=== PATIENT | female | born 1995 | race Caucasian/White ===

== ENCOUNTER 2016-12-27 23:01 | Emergency (ER) | payer BC ==
[~2016-12-27] VITALS: Ht 167.6 cm; Wt 63.2 kg
[~2016-12-27 23:01] MED LIST: ACET-62 PO; IBUP200C62 PO; LEVO500T63 PO; MEDR150D9 IM; NITR100C4 PO; ONDA4TAB7 PO; PHEN-779 PO; PROC-14 PO; [UNRECOGNIZED DRUG - OTHER] PO; [UNRECOGNIZED DRUG - OTHER] PO; [UNRECOGNIZED DRUG - OTHER] PO
--- OUTSIDE RECORDS SUMMARY | 2016-12-27 23:16 | XMS REPORT | Continuity of Care Document ---
Author Author [facility] Organization [facility] Address Unknown Phone Unavailable Allergies Active Description Code Type Severity Reaction Onset Reported/Identified Relationship to Patient Clinical Status Yes hydrocodone hydrocodone Drug Allergy Unknown HIVES 12/21/2015 Yes latex latex Drug Allergy Unknown THROAT SWOLLEN, ITCHY 12/21/2015 Yes meloxicam meloxicam Drug Allergy Unknown THROAT SWELLING 12/21/2015 Yes nalbuphine nalbuphine Drug Allergy Unknown HOT FLASHES/ COLD SWEATS 12/21/2015 Yes Penicillins Penicillins Drug Allergy Unknown VOMITING/ HIVES 12/21/2015 Yes sulfamethoxazole sulfamethoxazole Drug Allergy Unknown VOMITING 12/21/2015 Yes tramadol tramadol Drug Allergy Unknown VOMITING/DIZZINESS 12/21/2015 Yes trimethoprim trimethoprim Drug Allergy Unknown VOMITING 12/21/2015 Yes Bactrim Drug Allergy Unknown N/A 12/28/2015 Yes hydrocodone Drug Allergy Unknown N/A 12/28/2015 Yes latex Drug Allergy Unknown N/A 12/28/2015 Yes NUBAIN Drug Allergy Unknown N/A 12/28/2015 Yes penicillin Drug Allergy Unknown N/A 12/28/2015 Yes traMADol Drug Allergy Unknown N/A 12/28/2015 Yes oxyCODONE-acetaminophen Drug Allergy Mild hives 02/20/2016 Yes acetaminophen acetaminophen Drug Allergy Mild HIVES 07/23/2016 Yes latex latex Drug Allergy Severe SWELLING/ANAPHYLAXIS 10/17/2016 Yes meloxicam meloxicam Drug Allergy Severe THROAT CLOSES 10/17/2016 Yes tramadol tramadol Drug Allergy Moderate VOMITING 10/17/2016 Yes amoxicillin amoxicillin Drug Allergy Mild HIVES 10/17/2016 Yes hydrocodone hydrocodone Drug Allergy Mild HIVES 10/17/2016 Yes nalbuphine nalbuphine Drug Allergy Mild HOT FLASHES 10/17/2016 Yes Penicillins Penicillins Drug Allergy Mild HIVES 10/17/2016 Yes sulfamethoxazole sulfamethoxazole Drug Allergy Mild HIVES/ NAUSEA 10/17/2016 Yes trimethoprim trimethoprim Drug Allergy Mild HIVES/NAUSEA 10/17/2016 Yes ketorolac ketorolac Drug Allergy Unknown DIZZYNESS,DRY HEAVING 10/17/2016 Yes CATAFLAM Drug Allergy Unknown hives 11/21/2016 Yes gabapentin Drug Allergy Unknown hives 11/21/2016 Yes meloxicam Drug Allergy Unknown anaphylaxsis 11/21/2016 Yes fentanyl fentanyl Drug Allergy Severe THROAT CLOSE 12/07/2016 Yes latex latex Drug Allergy Severe SWELLING/ANAPHYLAXIS 12/07/2016 Yes meloxicam meloxicam Drug Allergy Severe THROAT CLOSES 12/07/2016 Yes diclofenac diclofenac Drug Allergy Moderate HIVES 12/07/2016 Yes tramadol tramadol Drug Allergy Moderate VOMITING 12/07/2016 Yes amoxicillin amoxicillin Drug Allergy Mild HIVES 12/07/2016 Yes hydrocodone hydrocodone Drug Allergy Mild HIVES 12/07/2016 Yes nalbuphine nalbuphine Drug Allergy Mild HOT FLASHES 12/07/2016 Yes Penicillins Penicillins Drug Allergy Mild HIVES 12/07/2016 Yes sulfamethoxazole sulfamethoxazole Drug Allergy Mild HIVES/ NAUSEA 12/07/2016 Yes trimethoprim trimethoprim Drug Allergy Mild HIVES/NAUSEA 12/07/2016 Yes ketorolac ketorolac Drug Allergy Unknown DIZZYNESS,DRY HEAVING 12/07/2016 Medications Medication Packaging Start Date Stop Date Route Dosage Sig oxyCODONE-acetaminophen 7.5 mg-325 mg tablet Tablet 12/28/2015 01/25/2016 7.5-325 mg 1 (one) Tablet by Oral route every 8 hours for 28 days as needed Depo-Provera 150 mg/mL intramuscular syringe Milligram 12/28/2015 150 mg/mL take 150 Milligram(s) by Intramuscular route every 3 months. Given IM LUOQ GM on 11/21/15 Depo-Provera 150 mg/mL intramuscular syringe Milligram 12/28/2015 150 mg/mL take 150 Milligram(s) by Intramuscular route every 3 months. Given IM LUOQ GM Zofran ODT 8 mg disintegrating tablet Tablet 02/01/20162015 8 mg take 1 (one) by Oral route every 8 hours as needed Tylenol-Codeine #3 300 mg-30 mg tablet Tablet 02/20/20162015 300-30 mg take 1 (one) Tablet by Oral route every 8 hours as needed Percocet 5 mg-325 mg tablet Tablet 03/08/2016 05/24/2016 5-325 mg take 1 (one) Tablet by Oral route every 8 hours for 14 days as needed tiZANidine 4 mg tablet Tablet 05/24/2016 11/21/2016 4 mg take 1 (one) Tablet by Oral route at bedtime gabapentin 300 mg capsule Capsule 05/24/2016 10/07/2016 300 mg take 1 (one) Capsule by Oral route three times per day benzonatate 200 mg capsule Capsule 06/03/2016 10/07/2016 200 mg take 1 (one) Capsule by Oral route three times per day as needed fluticasone 50 mcg/actuation nasal spray,suspension Inhaler 06/03/2016 10/07/2016 50 mcg/actuation 2 (two) Puff(s) each nostril daily doxycycline hyclate 100 mg tablet Tablet 06/25/2016 10/07/2016 100 mg take 1 (one) Tablet by Oral route two times per day for 10 days promethazine 6.25 mg-codeine 10 mg/5 mL syrup Milliliter 06/25/2016 10/07/2016 6.25-10 mg/5 mL 5 (five) Milliliter(s) by Oral route every 8 hours as needed Flomax 0.4 mg capsule Capsule 07/24/2016 10/07/2016 0.4 mg take 1 (one) Capsule by Oral route daily for 14 days Zofran ODT 4 mg disintegrating tablet Tablet 07/24/20162015 4 mg take 1 (one) Tablet by Oral route every 8 hours as needed Ventolin HFA 90 mcg/actuation aerosol inhaler Inhaler 08/30/2016 10/07/2016 90 mcg/actuation 1 or 2 (one or two) Puff(s) by inhaled route every 4 to 6 hours as needed Bromfed DM 2 mg-30 mg-10 mg/5 mL syrup Milliliter 11/13/2016 2-30-10 mg/5 mL 10 Milliliter(s) by Oral route every 6 hours as needed doxycycline monohydrate 25 mg/5 mL oral suspension Milliliter 11/21/2016 12/10/2016 25 mg/5 mL 20 Milliliter(s) by Oral route two times per day for 7 days Robaxin 500 mg tablet Ampule 11/21/2016 11/21/2016 500 mg take 1 (one) Tablet by Oral route daily predniSONE 50 mg tablet Tablet 11/21/2016 12/10/2016 50 mg take 1 (one) Tablet by Oral route every morning for 5 days Zithromax Z-Jose 250 mg tablet Package 11/27/2016 12/10/2016 250 mg take as directed predniSONE 20 mg tablet Tablet 12/10/2016 20 mg take 3 (three ) by Oral route in AM x 6 days, then 2 po q AM x 2 days, then 1 po Q AM x 2 days Problems Date Dx Coded Attending Type Code Diagnosis Diagnosed By 12/29/2015 DIOGO KOENIG MD M25.551 Pain in right hip DIOGO KOENIG MD 05/27/2016 DIOGO KOENIG MD Z00.00 Encounter for general adult medical examination without abnormal findings DIOGO KOENIG MD 05/27/2016 DIOGO KOENIG MD Z30.49 Encounter for surveillance of other contraceptives DIOGO KOENIG MD 06/04/2016 DIOGO KOENIG MD J06.9 Acute upper respiratory infection, unspecified АЛЕКСАНДР SUERO MD 08/16/2016 DIOGO KOENIG MD Z30.49 Encounter for surveillance of other contraceptives DIOGO KOENIG MD 10/08/2016 DIOGO KOENIG MD r31.29 Other microscopic hematuria DIOGO KOENIG MD 10/08/2016 DIOGO KOENIG MD R33.8 Other retention of urine DIOGO KOENIG MD 11/22/2016 DIOGO KOENIG MD J01.80 Other acute sinusitis JOHN FELICIANO MD 11/22/2016 DIOGO KOENIG MD Z30.49 Encounter for surveillance of other contraceptives JOHN FELICIANO MD 12/11/2016 DIOGO KOENIG MD M67.833 Other specified disorders of tendon, right wrist JADA VALENCIA, RYAN Suarez Code Description [place] [address] Office or other outpatient visit for the evaluation and management of a new patient, which requires DIOGO KOENIG MD 03/29/2016 00128 Urine test, by visual color comparison methods DIOGO KOENIG MD 05/27/2016 89238 Periodic comprehensive preventive medicine reevaluation and management of an individual including an DIOGO KOENIG MD 05/27/2016 j1050 medroxyprogesterone acetate 1mg DIOGO KOENIG MD 05/27/2016 91791 Office or other outpatient visit for the evaluation and management of an established patient, which АЛЕКСАНДР SUERO MD 06/04/2016 12887 Urine test, by visual color comparison methods DIOGO KOENIG MD 06/14/2016 56660 Office or other outpatient visit for the evaluation and management of an established patient, which АЛЕКСАНДР SUERO MD 06/14/2016 12186 Periodic comprehensive preventive medicine reevaluation and management of an individual including an DIOGO KOENIG MD 06/14/2016 j1050 medroxyprogesterone acetate 1mg DIOGO KOENIG MD 06/14/2016 82227 Administration of Injection DIOGO KOENIG MD W 09/13/2016 j1050 medroxyprogesterone acetate 1mg DIOGO KOENIG MD 09/13/2016 73329 Office or other outpatient visit for the evaluation and management of an established patient, which DIOGO KOENIG MD 10/08/2016 90563 Office or other outpatient visit for the evaluation and management of an established patient, which DIOGO KOENIG MD 10/18/2016 29001 Urine test, by visual color comparison methods JOHN FELICIANO MD 11/22/2016 52413 Office or other outpatient visit for the evaluation and management of an established patient, which JOHN FELICIANO MD 11/22/2016 J1050 medroxyprogesterone acetate 1mg JOHN FELICIANO MD 11/22/2016 83913 Radiologic examination, wrist; complete, minimum of 3 views RYAN ELIAS MD 12/11/2016 10592 Office or other outpatient visit for the evaluation and management of an established patient, which RYAN ELIAS MD 12/11/2016 A4570 Splint RYAN ELIAS MD 12/11/2016 13792 Office or other outpatient visit for the evaluation and management of an established patient, which JOHN FELICIANO MD 12/20/2016 J1050 medroxyprogesterone acetate 1mg JOHN FELICIANO MD 12/20/2016 Results Test Result Range URINE CULTURE - 01/01/15 20:20 Microbiology UR TEST - 02/19/15 14:40 UR TEST NEGATIVE NEGATIVE CBC W/DIFF - 11/01/15 17:16 EOSINOPHIL # 0.1 k/cumm 0.1-0.5 EOSINOPHIL % 2 % 2-4 GRANULOCYTE # 3.3 k/cumm 2.0-9.0 GRANULOCYTE % 48 % 50-75 LYMPHOCYTE # 2.8 k/cumm 1.0-4.0 LYMPHOCYTE % 41 % 20-30 MEAN CELL HGB 29.3 pg 27.0-33.0 MEAN CELL HGB CONCENTRATION 34.2 g/dL 32.0-37.0 MEAN CELL VOLUME 85.6 fl 80.0-100.0 MONOCYTE # 0.7 k/cumm 0.1-1.0 MONOCYTE % 10 % 4-6 RED BLOOD CELL 4.10 m/cumm 4.00-6.00 RED CELL DISTRIBUTION WIDTH 12.8 % 11.0- 15.6 WHITE BLOOD CELL 7.0 k/cumm 5.0-10.0 HEMOGLOBIN 12.0 gm/dL 12.0-16.0 HEMATOCRIT 35.1 % 37.0-47.0 PLATELET COUNT 280 k/cumm 150-400 CBC W/DIFF - 11/07/15 15:21 EOSINOPHIL # 0.0 k/cumm 0.1-0.5 EOSINOPHIL % 1 % 2-4 GRANULOCYTE # 4.6 k/cumm 2.0-9.0 GRANULOCYTE % 61 % 50-75 LYMPHOCYTE # 2.3 k/cumm 1.0-4.0 LYMPHOCYTE % 30 % 20-30 MEAN CELL HGB 29.3 pg 27.0-33.0 MEAN CELL HGB CONCENTRATION 34.0 g/dL 32.0-37.0 MEAN CELL VOLUME 86.2 fl 80.0-100.0 MONOCYTE # 0.6 k/cumm 0.1-1.0 MONOCYTE % 8 % 4-6 RED BLOOD CELL 3.92 m/cumm 4.00-6.00 RED CELL DISTRIBUTION WIDTH 13.0 % 11.0- 15.6 WHITE BLOOD CELL 7.5 k/cumm 5.0-10.0 HEMOGLOBIN 11.5 gm/dL 12.0-16.0 HEMATOCRIT 33.8 % 37.0-47.0 PLATELET COUNT 308 k/cumm 150-400 C REACTIVE PROTEIN - 11/07/15 15:21 C REACTIVE PROTEIN < 2.9 mg/L < 8.0 SED RATE - 11/07/15 15:21 SED RATE 10 mm/hr 0-15 CHEM/HEM PROFILE-BEDSIDE - 11/07/15 15:24 POTASSIUM 3.9 mmol/L 3.5-5.3 METHOD Bedside ANION GAP 19 mmol/L 10-20 METHOD Bedside GLUCOSE 98 mg/dL 70-99 BLOOD UREA NITROGEN 9 mg/dL 7-20 CREATININE 0.8 mg/dL 0.6-1.0 HEMOGLOBIN 12.2 gm/dL 12.0-16.0 HEMATOCRIT 36.0 % 37.0-47.0 SODIUM 140 mmol/L 135-148 CHLORIDE 103 mmol/L 98-110 CARBON DIOXIDE 22 mmol/L 21-32 CALCIUM IONIZED 4.9 mg/dL 4.5-5.3 URINALYSIS, ROUTINE - 12/21/15 20:30 UA LEUKOCYTE ESTERASE DIPSTICK 1+ NEGATIVE UA NITRITE DIPSTICK NEGATIVE NEGATIVE UA PROTEIN DIPSTICK TRACE NEGATIVE UA GLUCOSE DIPSTICK NEGATIVE NEGATIVE UA KETONE DIPSTICK NEGATIVE NEGATIVE UA UROBILINOGEN DIPSTICK NORMAL NORMAL UA BILIRUBIN DIPSTICK NEGATIVE NEGATIVE UA BLOOD DIPSTICK TRACE NEGATIVE UA SPECIFIC GRAVITY 1.020 1.015-1.025 UR PH 6.5 5.0-7.0 UA MICROSCOPIC - 12/21/15 20:30 UA AMORPHOUS SEDIMENT 1+ UA BACTERIA 1+ NEGATIVE UA EPITHELIAL CELLS 2+ epi/hpf 0 - 1+ UA MUCUS 4+ NEG TO 1+ UA RBC 0-3 rbc/hpf 0 - 3 UA VOLUME FOR EXAM 12.0 mL (12mL STD) UA WBC 2-5 wbc/hpf 0 - 5 UR TEST - 12/21/15 20:30 UR TEST NEGATIVE NEGATIVE UR TEST - 03/04/16 17:15 UR TEST NEGATIVE NEGATIVE Preg UCG Urine - 05/24/16 14:33 Please note: ok NRG Urine hCG Negative NRG URINALYSIS, ROUTINE - 07/20/16 16:47 UA LEUKOCYTE ESTERASE DIPSTICK 2+ NEGATIVE UA NITRITE DIPSTICK POSITIVE NEGATIVE UA PROTEIN DIPSTICK NEGATIVE NEGATIVE UA GLUCOSE DIPSTICK NEGATIVE NEGATIVE UA KETONE DIPSTICK NEGATIVE NEGATIVE UA UROBILINOGEN DIPSTICK NORMAL NORMAL UA BILIRUBIN DIPSTICK NEGATIVE NEGATIVE UA BLOOD DIPSTICK 2+ NEGATIVE UA SPECIFIC GRAVITY 1.020 1.015-1.025 UR PH 6.5 5.0-7.0 UA MICROSCOPIC - 07/20/16 16:47 UA BACTERIA 5+ NEGATIVE UA EPITHELIAL CELLS 3+ epi/hpf 0 - 1+ UA MUCUS 2+ NEG TO 1+ UA RBC 3-5 rbc/hpf 0 - 3 UA VOLUME FOR EXAM 12.0 mL (12mL STD) UA WBC 20-50 wbc/hpf 0 - 5 UR TEST - 07/20/16 16:47 UR TEST NEGATIVE NEGATIVE URINE CULTURE - 07/20/16 16:47 Microbiology CHEM/HEM PROFILE-BEDSIDE - 07/20/16 16:59 POTASSIUM 3.6 mmol/L 3.5-5.3 METHOD Bedside ANION GAP 18 mmol/L 10-20 METHOD Bedside GLUCOSE 83 mg/dL 70-99 BLOOD UREA NITROGEN 9 mg/dL 7-20 CREATININE 0.8 mg/dL 0.6-1.0 HEMOGLOBIN 11.9 gm/dL 12.0-16.0 HEMATOCRIT 35.0 % 37.0-47.0 SODIUM 141 mmol/L 135-148 CHLORIDE 106 mmol/L 98-110 CARBON DIOXIDE 22 mmol/L 21-32 CALCIUM IONIZED 4.4 mg/dL 4.5-5.3 CHEM/HEM PROFILE-BEDSIDE - 07/23/16 19:08 POTASSIUM 3.8 mmol/L 3.5-5.3 METHOD Bedside ANION GAP 17 mmol/L 10-20 METHOD Bedside GLUCOSE 84 mg/dL 70-99 BLOOD UREA NITROGEN 11 mg/dL 7-20 CREATININE 0.8 mg/dL 0.6-1.0 HEMOGLOBIN 12.9 gm/dL 12.0-16.0 HEMATOCRIT 38.0 % 37.0-47.0 SODIUM 140 mmol/L 135-148 CHLORIDE 106 mmol/L 98-110 CARBON DIOXIDE 22 mmol/L 21-32 CALCIUM IONIZED 4.5 mg/dL 4.5-5.3 URINALYSIS, ROUTINE - 07/23/16 19:09 UA LEUKOCYTE ESTERASE DIPSTICK TRACE NEGATIVE UA NITRITE DIPSTICK NEGATIVE NEGATIVE UA PROTEIN DIPSTICK NEGATIVE NEGATIVE UA GLUCOSE DIPSTICK NEGATIVE NEGATIVE UA KETONE DIPSTICK NEGATIVE NEGATIVE UA UROBILINOGEN DIPSTICK NORMAL NORMAL UA BILIRUBIN DIPSTICK NEGATIVE NEGATIVE UA BLOOD DIPSTICK TRACE NEGATIVE UA SPECIFIC GRAVITY 1.015 1.015-1.025 UR PH 7.0 5.0-7.0 UA MICROSCOPIC - 07/23/16 19:09 UA BACTERIA 1+ NEGATIVE UA EPITHELIAL CELLS 3+ epi/hpf 0 - 1+ UA RBC 0-3 rbc/hpf 0 - 3 UA VOLUME FOR EXAM 12.0 mL (12mL STD) UA WBC 0-1 wbc/hpf 0 - 5 UR TEST - 07/23/16 19:11 UR TEST NEGATIVE NEGATIVE CBC W/DIFF - 07/23/16 19:25 BASOPHIL # 0.0 k/cumm 0.0-0.2 BASOPHIL % 1 % 0-1 EOSINOPHIL # 0.2 k/cumm 0.1-0.5 EOSINOPHIL % 2 % 2-4 GRANULOCYTE # 2.4 k/cumm 2.0-9.0 GRANULOCYTE % 38 % 50-75 LYMPHOCYTE # 3.1 k/cumm 1.0-4.0 LYMPHOCYTE % 50 % 20-30 MEAN CELL HGB 30.1 pg 27.0-33.0 MEAN CELL HGB CONCENTRATION 34.6 g/dL 32.0-37.0 MEAN CELL VOLUME 87.1 fl 80.0-100.0 MONOCYTE # 0.6 k/cumm 0.1-1.0 MONOCYTE % 9 % 4-6 RED BLOOD CELL 4.28 m/cumm 4.00-6.00 RED CELL DISTRIBUTION WIDTH 12.5 % 11.0- 15.6 WHITE BLOOD CELL 6.3 k/cumm 5.0-10.0 HEMOGLOBIN 12.9 gm/dL 12.0-16.0 HEMATOCRIT 37.3 % 37.0-47.0 PLATELET COUNT 280 k/cumm 150-400 METABOLIC PANEL, BASIC - 07/23/16 19:25 POTASSIUM 3.8 mmol/L 3.5-5.3 EST GFR (MDRD) > 60 mL/min > 59 ANION GAP 11 mmol/L 5-15 GLUCOSE 82 mg/dL 70-99 CALCIUM 8.9 mg/dL 8.5-10.1 BLOOD UREA NITROGEN 11 mg/dL 7-20 CREATININE 0.9 mg/dL 0.6-1.0 SODIUM 139 mmol/L 135-148 CHLORIDE 103 mmol/L 98-110 CARBON DIOXIDE 25 mmol/L 21-32 URINALYSIS, ROUTINE - 08/06/16 13:10 UA LEUKOCYTE ESTERASE DIPSTICK TRACE NEGATIVE UA NITRITE DIPSTICK NEGATIVE NEGATIVE UA PROTEIN DIPSTICK TRACE NEGATIVE UA GLUCOSE DIPSTICK NEGATIVE NEGATIVE UA KETONE DIPSTICK NEGATIVE NEGATIVE UA UROBILINOGEN DIPSTICK NORMAL NORMAL UA BILIRUBIN DIPSTICK NEGATIVE NEGATIVE UA BLOOD DIPSTICK TRACE NEGATIVE UA SPECIFIC GRAVITY 1.010 1.015-1.025 UR PH 6.5 5.0-7.0 UA MICROSCOPIC - 08/06/16 13:10 UA BACTERIA 3+ NEGATIVE UA EPITHELIAL CELLS 4+ epi/hpf 0 - 1+ UA MUCUS 2+ NEG TO 1+ UA RBC 3-5 rbc/hpf 0 - 3 UA VOLUME FOR EXAM 12.0 mL (12mL STD) UA WBC 5-10 wbc/hpf 0 - 5 UR TEST - 08/06/16 13:10 UR TEST NEGATIVE NEGATIVE METABOLIC PANEL, BASIC - 08/06/16 13:34 POTASSIUM 3.9 mmol/L 3.5-5.3 EST GFR (MDRD) > 60 mL/min > 59 ANION GAP 12 mmol/L 5-15 EST CrCl (CG) > 60 mL/min > 59 GLUCOSE 98 mg/dL 70-99 CALCIUM 9.3 mg/dL 8.5-10.1 BLOOD UREA NITROGEN 13 mg/dL 7-20 CREATININE 0.9 mg/dL 0.6-1.0 SODIUM 138 mmol/L 135-148 CHLORIDE 103 mmol/L 98-110 CARBON DIOXIDE 23 mmol/L 21-32 URINALYSIS, ROUTINE - 09/20/16 14:00 UA LEUKOCYTE ESTERASE DIPSTICK 2+ NEGATIVE UA NITRITE DIPSTICK NEGATIVE NEGATIVE UA PROTEIN DIPSTICK 1+ NEGATIVE UA GLUCOSE DIPSTICK NEGATIVE NEGATIVE UA KETONE DIPSTICK NEGATIVE NEGATIVE UA UROBILINOGEN DIPSTICK NORMAL NORMAL UA BILIRUBIN DIPSTICK NEGATIVE NEGATIVE UA BLOOD DIPSTICK 2+ NEGATIVE UA SPECIFIC GRAVITY 1.015 1.015-1.025 UR PH 6.5 5.0-7.0 UA MICROSCOPIC - 09/20/16 14:00 UA BACTERIA 4+ NEGATIVE UA EPITHELIAL CELLS 5+ epi/hpf 0 - 1+ UA MUCUS 4+ NEG TO 1+ UA RBC 10-20 rbc/hpf 0 - 3 UA VOLUME FOR EXAM 12.0 mL (12mL STD) UA WBC 20-50 wbc/hpf 0 - 5 UR TEST - 09/20/16 14:00 UR TEST NEGATIVE NEGATIVE URINE CULTURE - 09/20/16 14:00 Microbiology CBC W/DIFF - 09/29/16 16:45 EOSINOPHIL # 0.1 k/cumm 0.1-0.5 EOSINOPHIL % 2 % 2-4 GRANULOCYTE # 2.9 k/cumm 2.0-9.0 GRANULOCYTE % 46 % 50-75 LYMPHOCYTE # 2.7 k/cumm 1.0-4.0 LYMPHOCYTE % 42 % 20-30 MEAN CELL HGB 30.5 pg 27.0-33.0 MEAN CELL HGB CONCENTRATION 34.8 g/dL 32.0-37.0 MEAN CELL VOLUME 87.6 fl 80.0-100.0 MONOCYTE # 0.6 k/cumm 0.1-1.0 MONOCYTE % 10 % 4-6 RED BLOOD CELL 4.10 m/cumm 4.00-6.00 RED CELL DISTRIBUTION WIDTH 13.0 % 11.0- 15.6 WHITE BLOOD CELL 6.3 k/cumm 5.0-10.0 HEMOGLOBIN 12.5 gm/dL 12.0-16.0 HEMATOCRIT 35.9 % 37.0-47.0 PLATELET COUNT 288 k/cumm 150-450 METABOLIC PANEL, COMPREHN - 09/29/16 16:45 POTASSIUM 3.8 mmol/L 3.5-5.3 EST GFR (MDRD) > 60 mL/min > 59 ANION GAP 12 mmol/L 5-15 EST CrCl (CG) > 60 mL/min > 59 GLUCOSE 99 mg/dL 70-99 CALCIUM 8.7 mg/dL 8.5-10.1 BLOOD UREA NITROGEN 14 mg/dL 7-20 CREATININE 0.9 mg/dL 0.6-1.0 SODIUM 142 mmol/L 135-148 CHLORIDE 106 mmol/L 98-110 AST/SGOT 16 Units/L 10-37 ALT/SGPT 24 Units/L < 66 CARBON DIOXIDE 24 mmol/L 21-32 TOTAL PROTEIN 7.9 gm/dL 6.4-8.2 ALBUMIN 4.5 gm/dL 3.4-5.0 BILI TOTAL 1.1 mg/dL 0.0-1.0 ALKALINE PHOSPHATASE TOTAL 62 IU/L 45- 117 LIPASE - 09/29/16 16:45 LIPASE 126 Units/L 73-393 URINALYSIS, ROUTINE - 09/29/16 17:10 UA LEUKOCYTE ESTERASE DIPSTICK 2+ NEGATIVE UA NITRITE DIPSTICK NEGATIVE NEGATIVE UA PROTEIN DIPSTICK TRACE NEGATIVE UA GLUCOSE DIPSTICK NEGATIVE NEGATIVE UA KETONE DIPSTICK NEGATIVE NEGATIVE UA UROBILINOGEN DIPSTICK NORMAL NORMAL UA BILIRUBIN DIPSTICK NEGATIVE NEGATIVE UA BLOOD DIPSTICK 2+ NEGATIVE UA SPECIFIC GRAVITY 1.010 1.015-1.025 UR PH 7.0 5.0-7.0 UA MICROSCOPIC - 09/29/16 17:10 UA BACTERIA 3+ NEGATIVE UA EPITHELIAL CELLS 4+ epi/hpf 0 - 1+ UA RBC 0-3 rbc/hpf 0 - 3 UA VOLUME FOR EXAM 12.0 mL (12mL STD) UA WBC 5-10 wbc/hpf 0 - 5 UR TEST - 09/29/16 17:10 UR TEST NEGATIVE NEGATIVE UR TEST - 10/03/16 13:10 UR TEST NEGATIVE NEGATIVE URINALYSIS, ROUTINE - 10/03/16 13:10 UA LEUKOCYTE ESTERASE DIPSTICK NEGATIVE NEGATIVE UA NITRITE DIPSTICK NEGATIVE NEGATIVE UA PROTEIN DIPSTICK NEGATIVE NEGATIVE UA GLUCOSE DIPSTICK NEGATIVE NEGATIVE UA KETONE DIPSTICK NEGATIVE NEGATIVE UA UROBILINOGEN DIPSTICK NORMAL NORMAL UA BILIRUBIN DIPSTICK NEGATIVE NEGATIVE UA BLOOD DIPSTICK TRACE NEGATIVE UA SPECIFIC GRAVITY 1.030 1.015-1.025 UR PH 5.0 5.0-7.0 UA MICROSCOPIC - 10/03/16 13:10 UA BACTERIA 3+ NEGATIVE UA EPITHELIAL CELLS 2+ epi/hpf 0 - 1+ UA MUCUS 4+ NEG TO 1+ UA RBC 3-5 rbc/hpf 0 - 3 UA VOLUME FOR EXAM 12.0 mL (12mL STD) UA WBC 2-5 wbc/hpf 0 - 5 CHEM/HEM PROFILE-BEDSIDE - 10/03/16 13:21 POTASSIUM 3.6 mmol/L 3.5-5.3 METHOD Bedside ANION GAP 19 mmol/L 10-20 METHOD Bedside GLUCOSE 90 mg/dL 70-99 BLOOD UREA NITROGEN 17 mg/dL 7-20 CREATININE 0.9 mg/dL 0.6-1.0 HEMOGLOBIN 13.6 gm/dL 12.0-16.0 HEMATOCRIT 40.0 % 37.0-47.0 SODIUM 143 mmol/L 135-148 CHLORIDE 107 mmol/L 98-110 CARBON DIOXIDE 22 mmol/L 21-32 CALCIUM IONIZED 4.9 mg/dL 4.5-5.3 URINALYSIS, ROUTINE - 10/05/16 18:53 UA LEUKOCYTE ESTERASE DIPSTICK 1+ NEGATIVE UA NITRITE DIPSTICK NEGATIVE NEGATIVE UA PROTEIN DIPSTICK NEGATIVE NEGATIVE UA GLUCOSE DIPSTICK NEGATIVE NEGATIVE UA KETONE DIPSTICK NEGATIVE NEGATIVE UA UROBILINOGEN DIPSTICK NORMAL NORMAL UA BILIRUBIN DIPSTICK NEGATIVE NEGATIVE UA BLOOD DIPSTICK 1+ NEGATIVE UA SPECIFIC GRAVITY 1.010 1.015-1.025 UR PH 7.0 5.0-7.0 UA MICROSCOPIC - 10/05/16 18:53 UA BACTERIA 5+ NEGATIVE UA EPITHELIAL CELLS 1+ epi/hpf 0 - 1+ UA RBC 3-5 rbc/hpf 0 - 3 UA VOLUME FOR EXAM 12.0 mL (12mL STD) UA WBC 2-5 wbc/hpf 0 - 5 URINALYSIS, ROUTINE - 10/17/16 18:35 UA LEUKOCYTE ESTERASE DIPSTICK 1+ NEGATIVE UA NITRITE DIPSTICK NEGATIVE NEGATIVE UA PROTEIN DIPSTICK NEGATIVE NEGATIVE UA GLUCOSE DIPSTICK NEGATIVE NEGATIVE UA KETONE DIPSTICK NEGATIVE NEGATIVE UA UROBILINOGEN DIPSTICK NORMAL NORMAL UA BILIRUBIN DIPSTICK NEGATIVE NEGATIVE UA BLOOD DIPSTICK 1+ NEGATIVE UA SPECIFIC GRAVITY 1.015 1.015-1.025 UR PH 6.0 5.0-7.0 UA MICROSCOPIC - 10/17/16 18:35 UA AMORPHOUS SEDIMENT 1+ UA BACTERIA 1+ NEGATIVE UA EPITHELIAL CELLS 1+ epi/hpf 0 - 1+ UA MUCUS 1+ NEG TO 1+ UA RBC 0-3 rbc/hpf 0 - 3 UA VOLUME FOR EXAM 12.0 mL (12mL STD) UA WBC 0-1 wbc/hpf 0 - 5 UR TEST - 10/17/16 18:35 UR TEST NEGATIVE NEGATIVE LACTIC ACID - 10/17/16 19:00 LACTIC ACID 1.6 mmol/L 0.5-2.0 CBC W/DIFF - 10/17/16 19:00 EOSINOPHIL # 0.1 k/cumm 0.1-0.5 EOSINOPHIL % 1 % 2-4 GRANULOCYTE # 3.9 k/cumm 2.0-9.0 GRANULOCYTE % 54 % 50-75 LYMPHOCYTE # 2.6 k/cumm 1.0-4.0 LYMPHOCYTE % 37 % 20-30 MEAN CELL HGB 30.7 pg 27.0-33.0 MEAN CELL HGB CONCENTRATION 35.4 g/dL 32.0-37.0 MEAN CELL VOLUME 86.8 fl 80.0-100.0 MONOCYTE # 0.6 k/cumm 0.1-1.0 MONOCYTE % 8 % 4-6 RED BLOOD CELL 4.56 m/cumm 4.00-6.00 RED CELL DISTRIBUTION WIDTH 12.6 % 11.0- 15.6 WHITE BLOOD CELL 7.2 k/cumm 5.0-10.0 HEMOGLOBIN 14.0 gm/dL 12.0-16.0 HEMATOCRIT 39.6 % 37.0-47.0 PLATELET COUNT 284 k/cumm 150-450 HEPATIC FUNCTION PANEL - 10/17/16 19:00 BILI UNCONJUGATED 0.3 mg/dL 0.0-0.7 AST/SGOT 19 Units/L 10-37 ALT/SGPT 34 Units/L < 66 TOTAL PROTEIN 8.4 gm/dL 6.4-8.2 ALBUMIN 4.6 gm/dL 3.4-5.0 BILI TOTAL 0.4 mg/dL 0.0-1.0 ALKALINE PHOSPHATASE TOTAL 66 IU/L 45- 117 BILI CONJUGATED 0.1 mg/dL 0.0-0.3 BLOOD CULTURE - 10/17/16 19:00 Microbiology GLUCOSE (POC) - 10/17/16 19:04 GLUCOSE (POC) 115 mg/dL 70-99 CHEM/HEM PROFILE-BEDSIDE - 10/17/16 19:09 POTASSIUM 3.7 mmol/L 3.5-5.3 METHOD Bedside ANION GAP 22 mmol/L 10-20 METHOD Bedside GLUCOSE 101 mg/dL 70-99 BLOOD UREA NITROGEN 11 mg/dL 7-20 CREATININE 0.7 mg/dL 0.6-1.0 HEMOGLOBIN 14.6 gm/dL 12.0-16.0 HEMATOCRIT 43.0 % 37.0-47.0 SODIUM 142 mmol/L 135-148 CHLORIDE 104 mmol/L 98-110 CARBON DIOXIDE 21 mmol/L 21-32 CALCIUM IONIZED 4.9 mg/dL 4.5-5.3 BLOOD CULTURE - 10/17/16 19:20 Microbiology BLOOD CULTURE - 10/22/16 19:25 Microbiology CBC W/DIFF - 10/22/16 19:31 EOSINOPHIL # 0.1 k/cumm 0.1-0.5 EOSINOPHIL % 1 % 2-4 GRANULOCYTE # 3.7 k/cumm 2.0-9.0 GRANULOCYTE % 50 % 50-75 LYMPHOCYTE # 3.0 k/cumm 1.0-4.0 LYMPHOCYTE % 39 % 20-30 MEAN CELL HGB 30.8 pg 27.0-33.0 MEAN CELL HGB CONCENTRATION 35.7 g/dL 32.0-37.0 MEAN CELL VOLUME 86.2 fl 80.0-100.0 MONOCYTE # 0.7 k/cumm 0.1-1.0 MONOCYTE % 9 % 4-6 RED BLOOD CELL 4.26 m/cumm 4.00-6.00 RED CELL DISTRIBUTION WIDTH 12.5 % 11.0- 15.6 WHITE BLOOD CELL 7.5 k/cumm 5.0-10.0 HEMOGLOBIN 13.1 gm/dL 12.0-16.0 HEMATOCRIT 36.7 % 37.0-47.0 PLATELET COUNT 306 k/cumm 150-450 URINALYSIS, ROUTINE - 10/22/16 19:31 UA LEUKOCYTE ESTERASE DIPSTICK TRACE NEGATIVE UA NITRITE DIPSTICK NEGATIVE NEGATIVE UA PROTEIN DIPSTICK TRACE NEGATIVE UA GLUCOSE DIPSTICK NEGATIVE NEGATIVE UA KETONE DIPSTICK NEGATIVE NEGATIVE UA UROBILINOGEN DIPSTICK NORMAL NORMAL UA BILIRUBIN DIPSTICK NEGATIVE NEGATIVE UA BLOOD DIPSTICK 1+ NEGATIVE UA SPECIFIC GRAVITY 1.020 1.015-1.025 UR PH 6.0 5.0-7.0 UA MICROSCOPIC - 10/22/16 19:31 UA BACTERIA 1+ NEGATIVE UA EPITHELIAL CELLS 1+ epi/hpf 0 - 1+ UA MUCUS 1+ NEG TO 1+ UA RBC 0-3 rbc/hpf 0 - 3 UA VOLUME FOR EXAM 12.0 mL (12mL STD) UA WBC 2-5 wbc/hpf 0 - 5 LACTIC ACID - 10/22/16 19:31 LACTIC ACID 0.9 mmol/L 0.5-2.0 METABOLIC PANEL, COMPREHN - 10/22/16 19:31 POTASSIUM 3.3 mmol/L 3.5-5.3 EST GFR (MDRD) > 60 mL/min > 59 ANION GAP 12 mmol/L 5-15 EST CrCl (CG) > 60 mL/min > 59 GLUCOSE 117 mg/dL 70-99 CALCIUM 9.2 mg/dL 8.5-10.1 BLOOD UREA NITROGEN 13 mg/dL 7-20 CREATININE 1.0 mg/dL 0.6-1.0 SODIUM 141 mmol/L 135-148 CHLORIDE 105 mmol/L 98-110 AST/SGOT 17 Units/L 10-37 ALT/SGPT 25 Units/L < 66 CARBON DIOXIDE 24 mmol/L 21-32 TOTAL PROTEIN 7.9 gm/dL 6.4-8.2 ALBUMIN 4.5 gm/dL 3.4-5.0 BILI TOTAL 0.9 mg/dL 0.0-1.0 ALKALINE PHOSPHATASE TOTAL 69 IU/L 45- 117 BLOOD CULTURE - 10/22/16 19:31 Microbiology Preg UCG Urine - 11/21/16 11:09 Please note: ok NRG Urine hCG Negative NRG WRIST-RIGHT 3+V - 12/10/16 14:43 WRIST-RIGHT 3+V See Report Url NRG Encounters ACCT No. Visit Date/Time Discharge Status Pt. Type Provider Facility Loc./Unit Complaint [id number] 08/17/2013 15:51:00 08/17/2013 23 :59:59 CLS Outpatient
[2016-12-27 23:17] VITALS: TEMP 98.8; Ht 167.6 cm; Wt 63.2 kg
--- OUTSIDE RECORDS SUMMARY | 2016-12-27 23:17 | XMS REPORT | Continuity of Care Document ---
Author Author [facility] Organization [facility] Address Unknown Phone Unavailable Support Name Relationship Address Phone ALISHA NESS MD Caregiver [address] [place], [place] [phone] EUGENIO CHAPMAN MD Caregiver [address] [place] [phone] KYLER TOUSSAINT Next Of Kin [address] [place] [id number] Insurance Providers Payer Name Policy Number Subscriber Name Relationship [facility] [id number] Kyler Toussaint 19 Child Problems Medical Problems Problem Onset Date Status Acute Pharyngitis, Soft tissue swelling of pharynx Unknown Active Dyspnea Unknown Active PHARYNGEAL PAIN Unknown Active Bilateral TMJ pain Unknown Active Flank pain, acute Unknown Active Flank pain, acute Unknown Active Facial contusion Unknown Active Facial contusion Unknown Active Medications Medication Dose Route Sig Days/Qty Instructions Order Date Discontinued Date Status Hydrocodone/Acetaminophen 1-2 Tab PO Every 6 Hours 08/13/14 Active Hydrocodone/Acetaminophen 1-2 Tab PO Every 6 Hours PRN PAIN 10 Qty Active Azithromycin 1 Pack PO DIRECTED 1 Qty Take 2 tabs the first day then 1 tab daily on days 2 through 08/16/14 Active Prednisone 20 Mg PO DIRECTED 18 Qty Take 2 pills for 3 days THEN, Active Social History Social History Problem Response Recorded Date/Time Smoking Status Unknown if ever smoked 08/16/2014 9:18am Chewing Tobacco Status No 08/28/2013 7:19pm Hx Substance Use No 08/16/2014 9:18am Hx Alcohol Use No 08/16/2014 9:18am Has the pt used tobacco in the last 12 months No 08/26/2013 4:03pm Query Response Start Date Stop Date Smoking Status Never smoker Hospital Discharge Instructions No hospital discharge instructions. Plan of Care No plan of care. Functional Status Query Response Date Recorded Physical Hygiene Self August 16, 2014 9:18am Disabilities None August 16, 2014 9:18am Devices Used None August 16, 2014 9:18am Dressing Self August 16, 2014 9:18am Ambulation Self August 16, 2014 9:18am Diet Self August 16, 2014 9:18am Mental Status Alert Oriented August 16, 2014 9:18am Disabilities None August 16, 2014 9:18am Devices Used None August 16, 2014 9:18am Physical Hygiene Self August 16, 2014 9:18am Dressing Self August 16, 2014 9:18am Ambulation Self August 16, 2014 9:18am Diet Self August 16, 2014 9:18am Allergies, Adverse Reactions, Alerts Allergen Type Severity Reaction Status Last Updated nalbuphine HCl Allergy Unknown Active 08/16/14 Penicillin Allergy Unknown Active 08/16/14 Ampicillin Allergy Unknown Active 08/16/14 Sulfamethoxazole Allergy Unknown Active 08/16/14 Trimethoprim Allergy Unknown Active 08/16/14 Amoxicillin Allergy Unknown Active 08/16/14 Tramadol Allergy Unknown Active 08/16/14 Meloxicam Allergy Unknown Active 08/16/14 Latex Allergy Unknown Active 08/16/14 Immunizations Name Given Type Hx Influenza Vaccination No Historical Hx Pneumococcal Vaccination No Historical Hx Tetanus, Diptheria, Pertussis < 5 YRS PER MOTHER Historical Hx Influenza Vaccination No Historical Hx Tetanus, Diptheria, Pertussis < 5 YRS PER MOTHER Historical Vital Signs Acute Vital Signs Vital Response Date/Time Temperature (Fahrenheit) 97.8 deg F (96.8 - 99.1) Temperature (Calculated Celsius) 36.57861 degrees C (36.0 - 37.3) Pulse Rate (adult) 83 bpm (60 - 100) Respiratory Rate 16 breaths/min (10 - 20) O2 Sat by Pulse Oximetry 97 % (90 - 100) Blood Pressure 134/86 mm Hg Height 5 ft 5 in Weight 128 lb Body Mass Index 21.0 kg/m^2 Results Test Source Date Result Interp. Ref. Range Comments Alanine Aminotransferase (ALT/SGPT) June 18, 2014 2:05pm 24 U/L N 9- 52 Albumin June 18, 2014 2:05pm 4.3 G/DL N 3.5-5.0 Albumin/Globulin Ratio June 18, 2014 2:05pm 1.7 RATIO N 1.1-2.2 Alkaline Phosphatase June 18, 2014 2:05pm 61 U/L L 70-260 Amylase Level June 18, 2014 2:05pm 77 U/L N 30-110 Anion Gap June 18, 2014 2:05pm 14 MEQ/L N 5-15 Aspartate Amino Transf (AST/SGOT) June 18, 2014 2:05pm 18 U/L N 14-36 BUN/Creatinine Ratio June 18, 2014 2:05pm 13 RATIO N 6-26 Basophils # (Auto) June 18, 2014 2:05pm 0.0 T/MM3 N 0-0.2 Basophils (%) (Auto) June 18, 2014 2:05pm 0.5 % N 0-2 Blood Urea Nitrogen June 18, 2014 2:05pm 12.0 MG/DL N 7-17 C-Reactive Protein August 02, 2013 11:45am < 5.0 MG/L 0-9 Calcium Level June 18, 2014 2:05pm 9.1 MG/DL N 8.4-10.2 Calculated Osmolality June 18, 2014 2:05pm 272 MOSM/KG N 261-280 Carbon Dioxide Level June 18, 2014 2:05pm 24 MEQ/L N 22-30 Chloride Level June 18, 2014 2:05pm 104 MEQ/L N 98-107 Creatinine June 18, 2014 2:05pm 0.9 MG/DL N 0.7-1.2 Eosinophils # (Auto) June 18, 2014 2:05pm 0.1 T/MM3 N 0-0.5 Eosinophils (%) (Auto) June 18, 2014 2:05pm 1.0 % N 0-4 Erythrocyte Sedimentation Rate August 02, 2013 11:45am 3 MM/HR N 0-20 Globulin June 18, 2014 2:05pm 2.5 G/DL N 2.4-3.6 Glucose Level June 18, 2014 2:05pm 87 MG/DL N 65-110 Hematocrit June 18, 2014 2:05pm 35.0 % L 36-46 Hemoglobin June 18, 2014 2:05pm 11.9 GM/DL L 12-16 Lipase June 18, 2014 2:05pm 41 U/L N 23-300 Lymphocytes # (Auto) June 18, 2014 2:05pm 2.0 T/MM3 N 1-4.8 Lymphocytes (%) (Auto) June 18, 2014 2:05pm 32.3 % N 23-45 Mean Corpuscular Hemoglobin June 18, 2014 2:05pm 29.4 UUG N 26-34 Mean Corpuscular Hemoglobin Concent June 18, 2014 2:05pm 34.0 GM/DL N 31-37 Mean Corpuscular Volume June 18, 2014 2:05pm 86.4 UM3 N 80-100 Mean Platelet Volume June 18, 2014 2:05pm 9.7 UM3 N 9.4-12.4 Monocytes # (Auto) June 18, 2014 2:05pm 0.7 T/MM3 N 0-0.8 Monocytes (%) (Auto) June 18, 2014 2:05pm 11.1 % H 0-9.0 Monoscreen July 28, 2013 9:35pm Negative - Neutrophils # (Auto) June 18, 2014 2:05pm 3.5 T/MM3 N 1.8-7.7 Neutrophils (%) (Auto) June 18, 2014 2:05pm 54.9 % N 33-66 Platelet Count June 18, 2014 2:05pm 237 T/MM3 N 130-400 Potassium Level June 18, 2014 2:05pm 3.9 MEQ/L N 3.6-5 RDW Standard Deviation June 18, 2014 2:05pm 44.8 FL N 36.9-50.2 Red Blood Count June 18, 2014 2:05pm 4.05 M/MM3 N 4.00-5.20 Sodium Level June 18, 2014 2:05pm 142 MEQ/L N 134-144 Total Bilirubin June 18, 2014 2:05pm 0.80 MG/DL N 0.20-1.30 Total Protein June 18, 2014 2:05pm 6.8 G/DL N 6.3-8.2 Urine Bilirubin June 18, 2014 2:45pm Negative - Has specimen been collected/obtained? Y Urine Blood June 18, 2014 2:45pm Trace-intact H - Has specimen been collected/obtained? Y Urine Collection Type June 18, 2014 2:45pm Cleancatch-midstream - Has specimen been collected/obtained? Y Urine Color June 18, 2014 2:45pm Yellow - Has specimen been collected/obtained? Y Urine Glucose (UA) June 18, 2014 2:45pm Negative - Has specimen been collected/obtained? Y Urine Ketones June 18, 2014 2:45pm Negative - Has specimen been collected/obtained? Y Urine Leukocyte Esterase June 18, 2014 2:45pm Negative - Has specimen been collected/obtained? Y Urine Nitrite June 18, 2014 2:45pm Negative - Has specimen been collected/obtained? Y Urine Test August 27, 2013 8:05am Negative - Has specimen been collected/obtained? Y Urine Protein June 18, 2014 2:45pm Negative - Has specimen been collected/obtained? Y Urine Specific [place] June 18, 2014 2:45pm 1.020 - Has specimen been collected/obtained? Y Urine Turbidity June 18, 2014 2:45pm Clear - Has specimen been collected/obtained? Y Urine Urobilinogen June 18, 2014 2:45pm 0.2 EU/DL - Has specimen been collected/obtained? Y Urine pH June 18, 2014 2:45pm 6.5 - Has specimen been collected/ obtained? Y White Blood Count June 18, 2014 2:05pm 6.3 T/MM3 N 4.5-11.0 Chemistry Specimen Hemolysis June 18, 2014 2:05pm < 15 0-25 0-25: No Hemolysis.26-70: Slight Hemolysis - can falsely elevate K and Urine Protein. 71-285: Moderate Hemolysis - can falsely elevate K, Troponin I, CA 19-9, PTH, CSF GLucose, and Urine Protein, and can falsely decrease Phenytoin. 286-999: Gross Hemolysis - can falsely elevate K, Troponin I, CA 19-9, PTH, CSF Glucose, and Urine Protine, and can falsely decrease Phenytoin. Recommend specimen recollection. Urinalysis Comment June 18, 2014 2:45pm Microscopic not ind. - Has specimen been collected/obtained? Y Turbidity June 18, 2014 2:05pm < 20 0-20 Glomerular Filtration Rate Calc June 18, 2014 2:05pm 82 - Immature Granulocyte # (Auto) June 18, 2014 2:05pm 0.01 T/MM3 N 0.00- 0.03 Immature Granulocyte % (Auto) June 18, 2014 2:05pm 0.2 % N 0.0-0.5 Icterus Index June 18, 2014 2:05pm < 2 0-7 Helicobacter pylori Rapid Urease Gastric Biopsy August 27, 2013 10:04am Name: PATRICIA TOUSSAINT Unit #: [id number] : 1995 Sex: F Loc / Svc: ED DOS: 08/13/14 Signed Report #: [id number] DIAGNOSTIC IMAGING REPORT TYPE OF EXAM: CT MAXILLOFACIAL W/O CONTRAST Dictated By: MARJAN LUEVANO MD INDICATION: ITS.REASON: PUNCHED IN FACE CT MAXILLOFACIAL W/O CONTRAST: Comparison: None Technique: Axial CT images were performed through the mid face without intravenous contrast. Coronal and sagittal 2-dimensional reformats Findings: No displaced maxillofacial fracture is identified. Paranasal sinuses and mastoid air cells are clear. The soft tissues show some preseptal soft tissue swelling on the right. Globes are intact. Lenses are located. No intraconal hematoma. Impression: No acute maxillofacial fracture seen. There is a preliminary report by virtual radiologic. . Procedures Procedure Status Date Provider(s) THER/PROPH/DIAG INJ IV PUSH completed 06/18/14 TX/PRO/DX INJ SAME DRUG SUPERVISOR ASBESTOS REMOVAL completed 06/18/14 HYDRATE IV INFUSION ADD-ON completed 06/18/14 Encounters Encounter Location Date/Time Departed Emergency Room [facility] 08/16/14 9:04am Departed Emergency Room [facility] 08/13/14 12:02am Registered [facility] 06/28/14 1:59pm Departed Emergency Room [facility] 06/18/14 1:08pm Recent Diagnosis
--- OUTSIDE RECORDS SUMMARY | 2016-12-27 23:17 | XMS REPORT | Continuity of Care Document ---
Author Author [facility] Organization [facility] Address Unknown Phone Unavailable Support Name Relationship Address Phone FEBRUARYCARSON DO Caregiver [address] [place] [address] Unavailable DIOGO KOENIG MD Caregiver [address] [place] [address] Unavailable KYLER JACOBO Next Of Kin [address] [place] [address] Insurance Providers Guarantor Patricia Jacobo Address [address] [place] [address] Email [email or web address] Payer [facility] Policy Number [id number] Subscriber's Name Kyler Jacobo Relationship 19 Child Group Number [id number] Advance Directives Directive Response Recorded Date/Time Advanced Directives Type None 10/30/16 6:16pm Chief Complaint and Reason for Visit Chief Complaint Abdominal Pain Reason for Visit [id number] Problems Active Problems Medical Problem Onset Date Status Acute Pharyngitis, Soft tissue swelling of pharynx Unknown Acute Bilateral TMJ pain Unknown Acute Dyspnea Unknown Acute Facial contusion Unknown Acute Facial contusion Unknown Acute Flank pain Unknown Acute Flank pain, acute Unknown Acute Flank pain, acute Unknown Acute Left flank pain Unknown Acute Left flank pain Unknown Acute PHARYNGEAL PAIN Unknown Acute UTI (urinary tract infection) Unknown Acute Urethral spasm Unknown Acute Medications Current Home Medications Medication Dose Units Route Directions Days Qty Instructions Start Date Acetaminophen 500 Mg Tablet 500 Mg Oral Every 4 Hours as needed for Pain 10/30/16 Amylase Lipase 1 Tab Oral As Needed 10/30/16 Duogest 1 Tab Oral Three Times Daily With Meals 10/30/16 Ibuprofen 200 Mg Capsule 2 Cap Oral Every 4 Hours as needed for Pain 10/30/16 Nitrofurantoin Monohyd/M-Cryst (Macrobid 100 Mg Capsule) 100 Mg Capsule 1 Cap Oral Twice Daily With Meals 10 Days 20 Capsule Take 2 (100 mg) capsules , by mouth, twice daily with meals. 10/30/16 Ondansetron (Zofran Odt) 4 Mg Tab.rapdis 4 Mg Oral Q6h/0300,0900,1500,2100 for Nausea 10 Tablet Oral disintegrating tablet 10/30/16 Phenazopyridine Hcl (Pyridium) 200 Mg Tablet 190 Mg Oral After Meals as needed for Urinary Pain 10 Tablet TAKE ONE TABLET EVERY 8 HOURS PRN URINARY PAIN 10/30/16 Raw Heart Supplement 1 Tab Oral Twice A Day 10/30/16 Social History Social History Problem Response Recorded Date/Time Onset Date Status Chewing Tobacco Status No 08/28/2013 7:19pm Not Applicable Not Applicable Hx Substance Use No 10/30/2016 6:22pm Not Applicable Not Applicable Hx Alcohol Use No 10/30/2016 6:22pm Not Applicable Not Applicable Has the pt used tobacco in the last 12 months No 08/26/2013 4:03pm Not Applicable Not Applicable Tobacco Usage none 06/18/2014 2:03pm Not Applicable Not Applicable Query Response Start Date Stop Date Smoking Status Never smoker Hospital Discharge Instructions No hospital discharge instructions. Plan of Care Discharge Date 10/30/16 8:36pm Disposition 01 DISCHARGED HOME, SELF-CARE Condition at Discharge Stable Instructions/Education Provided DI for Urinary Tract Infection (UTI) Forms Provided Return to Work/School Permit Prescriptions See Medication Section Referrals DIOGO KOENIG MD Order Date: 2 Days Address: [address] [place] [id number] Note: Follow up with your doctor or your urologist as soon as possible. Additional Instructions/Education IT DOES APPEAR THAT YOU HAVE ANOTHER URINARY TRACT INFECTION. SINCE YOU WERE ON CIPRO LAST TIME, WE ARE STARTING YOU ON MACROBID SINCE IT DOES NOT APPEAR YOU ARE ALLERGIC TO THIS MEDICATION. THE REMAINDER OF YOUR BLOOD WORK WAS NORMAL WITH THE EXCEPTION THAT YOU WERE DEHYDRATED. WE HAVE REPLACED REHYDRATED YOU WITH IV FLUIDS. USE PYRIDIUM FOR URINARY SYMPTOMS. YOU WILL NEED TO FOLLOW UP WITH YOUR DOCTOR FOR ADDITIONAL NARCOTIC PAIN MEDICATION. YOU HAVE RECEIVED FENTANYL AND DILAUDID WHILE IN THE ER. Functional Status No functional status results. Allergies, Adverse Reactions, Alerts Allergen Type Severity Reaction Status Last Updated nalbuphine HCl Allergy Unknown Active 10/30/16 Penicillin Allergy Unknown Active 10/30/16 Hydrocodone Allergy Severe hives/thick Active 10/30/16 Ampicillin Allergy Unknown Active 10/30/16 Sulfamethoxazole Allergy Unknown Active 10/30/16 Trimethoprim Allergy Unknown Active 10/30/16 Amoxicillin Allergy Unknown Active 10/30/16 Tramadol Allergy Unknown Active 10/30/16 Diclofenac Allergy Unknown HIVES Active 10/30/16 Nalbuphine Allergy Unknown Active 10/30/16 Ketorolac Adverse Reaction Unknown DIZZY VOMITING Active 10/30/16 Meloxicam Allergy Unknown Active 10/30/16 Latex Allergy Severe difficulty swallowing/breathing Active 10/30/16 Immunizations Query Response on File Recorded Date/Time Hx Influenza Vaccination No 01/10/15 11:30pm Hx Pneumococcal Vaccination No 01/10/15 11:30pm Hx Tetanus, Diptheria, Pertussis < 5 YRS PER MOTHER 11/06/14 11:39pm Hx Influenza Vaccination No 01/10/15 11:30pm Hx Tetanus, Diptheria, Pertussis < 5 YRS PER MOTHER 11/06/14 11:39pm Vital Signs Acute Vital Signs Vital Response Date/Time Temperature (Fahrenheit) 98.2 deg F (96.8 - 99.1) 10/30/2016 8:36pm Temperature (Calculated Celsius) 36.29174 degrees C (36.0 - 37.3) 10/30/2016 8:36pm Pulse Rate (adult) 80 bpm (60 - 100) 10/30/2016 8:36pm Respiratory Rate 16 breaths/min (10 - 20) 10/30/2016 8:36pm O2 Sat by Pulse Oximetry 100 % (90 - 100) 10/30/2016 8:36pm Blood Pressure 124/80 mm Hg 10/30/2016 8:36pm Height (Feet) 5 feet 10/30/2016 6:16pm Height (Inches) 6.00 inches 10/30/2016 6:16pm Weight (Kilograms) 65.400 kg 10/30/2016 6:16pm Body Mass Index (BMI) 23.0 10/30/2016 6:16pm Results Laboratory Results Test Name Result Units Flags Reference Collection Date/Time Result Date/ Time Comments White Blood Count 7.3 T/MM3 4.5-11.0 10/30/2016 6:39pm 10/30/2016 6: 45pm Red Blood Count 4.24 M/MM3 4.00-5.20 10/30/2016 6:39pm 10/30/2016 6: 45pm Hemoglobin 12.9 GM/DL 12-16 10/30/2016 6:39pm 10/30/2016 6:45pm Hematocrit 36.8 % 36-46 10/30/2016 6:39pm 10/30/2016 6:45pm Mean Corpuscular Volume 86.8 UM3 80-100 10/30/2016 6:39pm 10/30/2016 6: 45pm Mean Corpuscular Hemoglobin 30.4 UUG 26-34 10/30/2016 6:39pm 2016 6:45pm Mean Corpuscular Hemoglobin Concent 35.1 GM/DL 31-37 10/30/2016 6:39pm 10/30/2016 6:45pm RDW Standard Deviation 38.6 FL 36.9-50.2 10/30/2016 6:39pm 10/30/2016 6 :45pm Platelet Count 289 T/MM3 130-400 10/30/2016 6:39pm 10/30/2016 6:45pm Mean Platelet Volume 9.4 UM3 9.4-12.4 10/30/2016 6:39pm 10/30/2016 6: 45pm Neutrophils (%) (Auto) 54.5 % 33-66 10/30/2016 6:39pm 10/30/2016 6: 45pm Lymphocytes (%) (Auto) 36.5 % 23-45 10/30/2016 6:39pm 10/30/2016 6: 45pm Monocytes (%) (Auto) 7.3 % 0-9.0 10/30/2016 6:39pm 10/30/2016 6:45pm Eosinophils (%) (Auto) 1.1 % 0-4 10/30/2016 6:39pm 10/30/2016 6:45pm Basophils (%) (Auto) 0.5 % 0-2 10/30/2016 6:39pm 10/30/2016 6:45pm Immature Granulocyte % (Auto) 0.1 % 0.0-0.5 10/30/2016 6:39pm 2016 6:45pm Absolute Neutrophils (auto) 4.0 T/MM3 1.8-7.7 10/30/2016 6:39pm 2016 6:45pm Absolute Lymphocytes (auto) 2.7 T/MM3 1-4.8 10/30/2016 6:39pm 2016 6:45pm Absolute Monocytes (auto) 0.5 T/MM3 0-0.8 10/30/2016 6:39pm 10/30/2016 6:45pm Absolute Eosinophils (auto) 0.1 T/MM3 0-0.5 10/30/2016 6:39pm 2016 6:45pm Absolute Basophils (auto) 0.0 T/MM3 0-0.2 10/30/2016 6:39pm 10/30/2016 6:45pm Absolute Immature Granulocyte (auto 0.01 T/MM3 0.00-0.03 10/30/2016 6: 39pm 10/30/2016 6:45pm Icterus Index < 2 0-7 10/30/2016 6:39pm 10/30/2016 6:52pm Chemistry Specimen Hemolysis < 15 0-25 10/30/2016 6:39pm 10/30/2016 6 :52pm 0-25: Specimen Exhibited No Hemolysis. Turbidity < 20 0-20 10/30/2016 6:39pm 10/30/2016 6:52pm Sodium Level 143 MEQ/L 134-144 10/30/2016 6:39pm 10/30/2016 6:52pm Potassium Level 3.8 MEQ/L 3.6-5 10/30/2016 6:39pm 10/30/2016 6:52pm Chloride Level 108 MEQ/L H 98-107 10/30/2016 6:39pm 10/30/2016 6:52pm Carbon Dioxide Level 20 MEQ/L L 22-30 10/30/2016 6:39pm 10/30/2016 6: 52pm Anion Gap 15 MEQ/L 5-15 10/30/2016 6:39pm 10/30/2016 6:52pm Blood Urea Nitrogen 13.0 MG/DL 7-17 10/30/2016 6:39pm 10/30/2016 6: 52pm Creatinine 0.9 MG/DL 0.7-1.2 10/30/2016 6:39pm 10/30/2016 6:52pm BUN/Creatinine Ratio 14 RATIO 6-10/30/2016 6:39pm 10/30/2016 6:52pm Glomerular Filtration Rate Calc 80 10/30/2016 6:39pm 10/30/2016 6: 52pm Glucose Level 112 MG/DL H 65-110 10/30/2016 6:39pm 10/30/2016 6:52pm Calculated Osmolality 276 MOSM/KG 261-280 10/30/2016 6:39pm 10/30/2016 6:52pm Calcium Level 9.9 MG/DL 8.4-10.2 10/30/2016 6:39pm 10/30/2016 6:52pm Total Bilirubin 1.70 MG/DL H 0.20-1.30 10/30/2016 6:39pm 10/30/2016 6: 52pm Alkaline Phosphatase 60 U/L 38-126 10/30/2016 6:39pm 10/30/2016 6:52pm Total Protein 8.1 G/DL 6.3-8.2 10/30/2016 6:39pm 10/30/2016 6:52pm Albumin 5.1 G/DL H 3.5-5.0 10/30/2016 6:39pm 10/30/2016 6:52pm Globulin 3.0 G/DL 2.4-3.6 10/30/2016 6:39pm 10/30/2016 6:52pm Albumin/Globulin Ratio 1.7 RATIO 1.1-2.2 10/30/2016 6:39pm 10/30/2016 6 :52pm Aspartate Amino Transf (AST/SGOT) 24 U/L 14-36 10/30/2016 6:39pm 2016 6:52pm Alanine Aminotransferase (ALT/SGPT) 42 U/L 9-52 10/30/2016 6:39pm 10/30 6:52pm Lipase 54 U/L 23-300 10/30/2016 6:39pm 10/30/2016 6:52pm Urine Collection Type VOIDED-NOT CC-MIDSTR 10/30/2016 7:33pm 2016 7:38pm Urine Color YELLOW YELLOW 10/30/2016 7:33pm 10/30/2016 7:38pm Urine Turbidity SL CLOUDY CLEAR 10/30/2016 7:33pm 10/30/2016 7:38pm Urine Specific [place] >=1.030 H 1.015-1.025 10/30/2016 7:33pm 2016 7:38pm Urine pH 6.0 5.0-8.0 10/30/2016 7:33pm 10/30/2016 7:38pm Urine Leukocyte Esterase TRACE A NEGATIVE 10/30/2016 7:33pm 2016 7:38pm Urine Nitrite NEGATIVE NEGATIVE 10/30/2016 7:33pm 10/30/2016 7:38pm Urine Protein TRACE A NEGATIVE 10/30/2016 7:33pm 10/30/2016 7:38pm Urine Glucose (UA) NEGATIVE NEGATIVE 10/30/2016 7:33pm 10/30/2016 7: 38pm Urine Ketones TRACE A NEGATIVE 10/30/2016 7:33pm 10/30/2016 7:38pm Urine Urobilinogen 0.2 EU/DL NORMAL 10/30/2016 7:33pm 10/30/2016 7: 38pm Urine Bilirubin NEGATIVE NEGATIVE 10/30/2016 7:33pm 10/30/2016 7: 38pm Urine Blood 2+ A NEGATIVE 10/30/2016 7:33pm 10/30/2016 7:38pm Urine WBC 5-10 /HPF H 0-5 10/30/2016 7:33pm 10/30/2016 7:45pm Urine RBC 1-3 /HPF 0-3 10/30/2016 7:33pm 10/30/2016 7:45pm Urine Squamous Epithelial Cells 20-50 10/30/2016 7:33pm 10/30/2016 7:45pm Urine Bacteria 2+ H NEGATIVE 10/30/2016 7:33pm 10/30/2016 7:45pm Urine Mucus PRESENT 10/30/2016 7:33pm 10/30/2016 7:45pm Urine Culture Indicated CULT NOT INDICATED 10/30/2016 7:33pm 2016 7:45pm Procedures No known history of procedures. Encounters Encounter Location Arrival/Admit Date Discharge/Depart Date Attending Provider Departed Emergency Room [facility] 10/30/16 6:09pm 10/30/16 8: 36pm CARSON LEBLANC DO Recent Diagnosis
--- OUTSIDE RECORDS SUMMARY | 2016-12-27 23:17 | XMS REPORT | Continuity of Care Document ---
Author Author [facility] Organization [facility] Address Unknown Phone Unavailable Support Name Relationship Address Phone ZAHEER VARGHESE MD Caregiver [address] [address] PRASHANTH KOENIG MD Caregiver [address] [phone] KYLER TOUSSAINT Next Of Kin [phone] [place] [address] FA C Insurance Providers Payer Name Policy Number Subscriber Name Relationship [facility] [id number] Kyler Toussaint 19 Child Problems Medical Problems Problem Onset Date Status Acute Pharyngitis, Soft tissue swelling of pharynx Unknown Active Dyspnea Unknown Active PHARYNGEAL PAIN Unknown Active Bilateral TMJ pain Unknown Active Flank pain, acute Unknown Active Medications Medication Dose Route Sig Days/Qty Instructions Order Date Discontinued Date Status Cyclobenzaprine HCl 1 Tab PO THREE TIMES A DAY PRN PRN ORDERS 30 Qty Active Hydrocodone/Acetaminophen 1-2 Tab PO Q6H/0300,0900,1500,2100 PRN left flank pain 20 Qty 06/18/14 Active Social History Social History Problem Response Recorded Date/Time Smoking Status Never smoker 06/18/2014 1:45pm Chewing Tobacco Status No 08/28/2013 7:19pm Hx Substance Use No 08/28/2013 7:19pm Hx Alcohol Use No 08/28/2013 7:19pm Has the pt used tobacco in the last 12 months No 08/26/2013 4:03pm Query Response Start Date Stop Date Smoking Status Never smoker Hospital Discharge Instructions No hospital discharge instructions. Plan of Care No plan of care. Functional Status Query Response Date Recorded Physical Hygiene Self June 18, 2014 1:45pm Disabilities None June 18, 2014 1:45pm Devices Used None June 18, 2014 1:45pm Dressing Self June 18, 2014 1:45pm Ambulation Self June 18, 2014 1:45pm Diet Self June 18, 2014 1:45pm Mental Status Alert June 18, 2014 5:18pm Disabilities None June 18, 2014 1:45pm Devices Used None June 18, 2014 1:45pm Physical Hygiene Self June 18, 2014 1:45pm Dressing Self June 18, 2014 1:45pm Ambulation Self June 18, 2014 1:45pm Diet Self June 18, 2014 1:45pm Allergies, Adverse Reactions, Alerts Allergen Type Severity Reaction Status Last Updated hydrocodone bit Allergy Unknown Active 08/26/13 nalbuphine HCl Allergy Unknown Active 06/18/14 Penicillin Allergy Unknown Active 06/18/14 Acetaminophen Allergy Unknown Active 08/26/13 Ampicillin Allergy Unknown Active 06/18/14 Sulfamethoxazole Allergy Unknown Active 07/28/13 Trimethoprim Allergy Unknown Active 07/28/13 Amoxicillin Allergy Unknown Active 06/18/14 Tramadol Allergy Unknown Active 06/18/14 Meloxicam Allergy Unknown Active 07/28/13 Latex Allergy Unknown Active 06/18/14 Immunizations Name Given Type Hx Influenza Vaccination No Historical Hx Pneumococcal Vaccination No Historical Hx Influenza Vaccination No Historical Vital Signs Acute Vital Signs Vital Response Date/Time Temperature (Fahrenheit) 97.5 deg F (96.8 - 99.1) Temperature (Calculated Celsius) 36.21228 degrees C (36.0 - 37.3) Pulse Rate (adult) 87 bpm (60 - 100) Respiratory Rate 20 breaths/min (10 - 20) O2 Sat by Pulse Oximetry 100 % (90 - 100) Blood Pressure 119/79 mm Hg Height 5 ft 6 in Weight 132 lb Body Mass Index 21.0 kg/m^2 Results [...] Has specimen been collected/obtained? Y Urine Specific [place] June 18, 2014 2:45pm 1.020 - Has [...] Urease Gastric Biopsy August 27, 2013 10:04am Procedures No known history of procedures. Encounters Encounter Location Date/Time Departed Emergency Room [facility] 06/18/14 1:08pm Recent Diagnosis
--- OUTSIDE RECORDS SUMMARY | 2016-12-27 23:17 | XMS REPORT | Continuity of Care Document ---
Author Author [facility] Organization [facility] Address Unknown Phone Unavailable Support Name Relationship Address Phone ALISHA NESS MD Caregiver [address] [place], [place] [phone] MICHAEL TOLENTINO MD Caregiver [address] [place] [phone] KYLER TOUSSAINT Next Of Kin [address] [id number] Insurance Providers Payer Name Policy Number Subscriber Name Relationship [facility] [id number] Kyler Toussaint 19 Child Advance Directives Directive Response Recorded Date/Time Advanced Directives Type None 11/06/14 11:49pm Problems Medical Problems Problem Onset Date Status Acute Pharyngitis, Soft tissue swelling of pharynx Unknown Active Dyspnea Unknown Active PHARYNGEAL PAIN Unknown Active Bilateral TMJ pain Unknown Active Flank pain, acute Unknown Active Flank pain, acute Unknown Active Facial contusion Unknown Active Facial contusion Unknown Active Left flank pain Unknown Active UTI (urinary tract infection) Unknown Active Left flank pain Unknown Active Medications Medication Dose Route Sig Days/Qty Instructions Order Date Discontinued Date Status Levofloxacin 1 Tab PO DAILY 4 Qty 11/07/14 Active Phenazopyridine HCl 1 Tab-Cap PO THREE TIMES A DAY 9 Qty 11/07/14 Active Oxycodone HCl/Acetaminophen 5 Mg PO Q4H PRN PAIN 20 Qty Take 1 tablet, by mouth, every 4 hours as needed for pain. 11/07/14 Active Social History Social History Problem Response Recorded Date/Time Chewing Tobacco Status No 08/28/2013 7:19pm Hx Substance Use No 11/06/2014 11:39pm Hx Alcohol Use No 11/06/2014 11:39pm Has the pt used tobacco in the last 12 months No 08/26/2013 4:03pm Tobacco Usage none 06/18/2014 2:03pm Query Response Start Date Stop Date Smoking Status Never smoker Hospital Discharge Instructions No hospital discharge instructions. Plan of Care No plan of care. Functional Status Query Response Date Recorded Physical Hygiene Self November 06, 2014 11:39pm Disabilities None November 06, 2014 11:39pm Devices Used None November 06, 2014 11:39pm Dressing Self November 06, 2014 11:39pm Ambulation Self November 06, 2014 11:39pm Diet Self November 06, 2014 11:39pm Mental Status Alert Oriented November 06, 2014 11:39pm Disabilities None November 06, 2014 11:39pm Devices Used None November 06, 2014 11:39pm Physical Hygiene Self November 06, 2014 11:39pm Dressing Self November 06, 2014 11:39pm Ambulation Self November 06, 2014 11:39pm Diet Self November 06, 2014 11:39pm Allergies, Adverse Reactions, Alerts Allergen Type Severity Reaction Status Last Updated nalbuphine HCl Allergy Unknown Active 08/16/14 Penicillin Allergy Unknown Active 08/16/14 Hydrocodone Allergy Severe hives/thick Active 11/06/14 Ampicillin Allergy Unknown Active 08/16/14 Sulfamethoxazole Allergy Unknown Active 08/16/14 Trimethoprim Allergy Unknown Active 08/16/14 Amoxicillin Allergy Unknown Active 08/16/14 Tramadol Allergy Unknown Active 08/16/14 Meloxicam Allergy Unknown Active 08/16/14 Latex Allergy Severe difficulty swallowing/breathing Active 11/06/14 Immunizations Name Given Type Hx Influenza Vaccination No Historical Hx Pneumococcal Vaccination No Historical Hx Tetanus, Diptheria, Pertussis < 5 YRS PER MOTHER Historical Hx Influenza Vaccination No Historical Hx Tetanus, Diptheria, Pertussis < 5 YRS PER MOTHER Historical Vital Signs Acute Vital Signs Vital Response Date/Time Temperature (Fahrenheit) 98.2 deg F (96.8 - 99.1) Temperature (Calculated Celsius) 36.96021 degrees C (36.0 - 37.3) Pulse Rate (adult) 82 bpm (60 - 100) Respiratory Rate 18 breaths/min (10 - 20) O2 Sat by Pulse Oximetry 99 % (90 - 100) Blood Pressure 118/70 mm Hg Height 5 ft 6 in Weight 125 lb Body Mass Index 20.0 kg/m^2 Results Test Source Date Result Interp. Ref. Range Comments Alanine Aminotransferase (ALT/SGPT) November 06, 2014 11:59pm 17 U/L N 9- 52 Albumin November 06, 2014 11:59pm 4.5 G/DL N 3.5-5.0 Albumin/Globulin Ratio November 06, 2014 11:59pm 1.4 RATIO N 1.1-2.2 Alkaline Phosphatase November 06, 2014 11:59pm 60 U/L L 70-260 Amylase Level June 18, 2014 2:05pm 77 U/L N 30-110 Anion Gap November 06, 2014 11:59pm 9 MEQ/L N 5-15 Aspartate Amino Transf (AST/SGOT) November 06, 2014 11:59pm 24 U/L N 14- 36 BUN/Creatinine Ratio November 06, 2014 11:59pm 14 RATIO N 6-26 Band Neutrophils # November 06, 2014 11:59pm 0.3 T/MM3 - Band Neutrophils % November 06, 2014 11:59pm 4.0 % N 0-6 Basophils # (Auto) June 18, 2014 2:05pm 0.0 T/MM3 N 0-0.2 Basophils (%) (Auto) June 18, 2014 2:05pm 0.5 % N 0-2 Blood Urea Nitrogen November 06, 2014 11:59pm 11.0 MG/DL N 7-17 C-Reactive Protein August 02, 2013 11:45am < 5.0 MG/L 0-9 Calcium Level November 06, 2014 11:59pm 9.7 MG/DL N 8.4-10.2 Calculated Osmolality November 06, 2014 11:59pm 270 MOSM/KG N 261-280 Carbon Dioxide Level November 06, 2014 11:59pm 26 MEQ/L N 22-30 Chloride Level November 06, 2014 11:59pm 106 MEQ/L N 98-107 Creatinine November 06, 2014 11:59pm 0.8 MG/DL N 0.7-1.2 Eosinophils # (Auto) June 18, 2014 2:05pm 0.1 T/MM3 N 0-0.5 Eosinophils (%) (Auto) June 18, 2014 2:05pm 1.0 % N 0-4 Erythrocyte Sedimentation Rate August 02, 2013 11:45am 3 MM/HR N 0-20 Globulin November 06, 2014 11:59pm 3.3 G/DL N 2.4-3.6 Glucose Level November 06, 2014 11:59pm 91 MG/DL N 65-110 Hematocrit November 06, 2014 11:59pm 34.1 % L 36-46 Hemoglobin November 06, 2014 11:59pm 11.1 GM/DL L 12-16 Lipase June 18, 2014 2:05pm 41 U/L N 23-300 Lymphocytes # (Auto) June 18, 2014 2:05pm 2.0 T/MM3 N 1-4.8 Lymphocytes # (Manual) November 06, 2014 11:59pm 3.3 T/MM3 N 1-4.8 Lymphocytes % (Manual) November 06, 2014 11:59pm 41.0 % N 23-45 Lymphocytes (%) (Auto) June 18, 2014 2:05pm 32.3 % N 23-45 Mean Corpuscular Hemoglobin November 06, 2014 11:59pm 26.8 UUG N 26-34 Mean Corpuscular Hemoglobin Concent November 06, 2014 11:59pm 32.6 GM/DL N 31-37 Mean Corpuscular Volume November 06, 2014 11:59pm 82.4 UM3 N 80-100 Mean Platelet Volume November 06, 2014 11:59pm 9.7 UM3 N 9.4-12.4 Monocytes # (Auto) June 18, 2014 2:05pm 0.7 T/MM3 N 0-0.8 Monocytes (%) (Auto) June 18, 2014 2:05pm 11.1 % H 0-9.0 Monoscreen July 28, 2013 9:35pm Negative - Neutrophils # (Auto) June 18, 2014 2:05pm 3.5 T/MM3 N 1.8-7.7 Neutrophils # (Manual) November 06, 2014 11:59pm 4.4 T/MM3 N 1.8-7.7 Neutrophils % (Manual) November 06, 2014 11:59pm 55.0 % N 33-66 Neutrophils (%) (Auto) June 18, 2014 2:05pm 54.9 % N 33-66 Platelet Count November 06, 2014 11:59pm 310 T/MM3 N 130-400 Potassium Level November 06, 2014 11:59pm 3.6 MEQ/L N 3.6-5 RDW Standard Deviation November 06, 2014 11:59pm 40.6 FL N 36.9-50.2 Red Blood Count November 06, 2014 11:59pm 4.14 M/MM3 N 4.00-5.20 Sodium Level November 06, 2014 11:59pm 141 MEQ/L N 134-144 Total Bilirubin November 06, 2014 11:59pm 0.60 MG/DL N 0.20-1.30 Total Protein November 06, 2014 11:59pm 7.8 G/DL N 6.3-8.2 Urine Bacteria November 06, 2014 11:53pm Trace H - Has specimen been collected/obtained? Y Urine Bilirubin November 06, 2014 11:53pm Negative - Has specimen been collected/obtained? Y Urine Blood November 06, 2014 11:53pm 3+ H - Has specimen been collected /obtained? Y Urine Collection Type November 06, 2014 11:53pm Cleancatch-midstream - Has specimen been collected/obtained? Y Urine Color November 06, 2014 11:53pm Yellow - Has specimen been collected/obtained? Y Urine Glucose (UA) November 06, 2014 11:53pm Negative - Has specimen been collected/obtained? Y Urine Ketones November 06, 2014 11:53pm Negative - Has specimen been collected/obtained? Y Urine Leukocyte Esterase November 06, 2014 11:53pm 2+ H - Has specimen been collected/obtained? Y Urine Nitrite November 06, 2014 11:53pm Negative - Has specimen been collected/obtained? Y Urine Protein November 06, 2014 11:53pm Negative - Has specimen been collected/obtained? Y Urine RBC November 06, 2014 11:53pm 5-10 /HPF H - Has specimen been collected/obtained? Y Urine Specific [place] November 06, 2014 11:53pm 1.015 - Has specimen been collected/obtained? Y Urine Squamous Epithelial Cells November 06, 2014 11:53pm 0-5 - Has specimen been collected/obtained? Y Urine Turbidity November 06, 2014 11:53pm Sl cloudy - Has specimen been collected/obtained? Y Urine Urobilinogen November 06, 2014 11:53pm 0.2 EU/DL - Has specimen been collected/obtained? Y Urine WBC November 06, 2014 11:53pm 10-20 /HPF H - Has specimen been collected/obtained? Y Urine pH November 06, 2014 11:53pm 6.0 - Has specimen been collected/ obtained? Y White Blood Count November 06, 2014 11:59pm 8.0 T/MM3 N 4.5-11.0 Chemistry Specimen Hemolysis November 06, 2014 11:59pm < 15 0-25 0-25 : No Hemolysis.26-70: Slight Hemolysis - can falsely [...] - Has specimen been collected/obtained? Y Turbidity November 06, 2014 11:59pm < 20 0-20 Glomerular Filtration Rate Calc November 06, 2014 11:59pm 93 - Immature Granulocyte # (Auto) June 18, 2014 2:05pm 0.01 T/MM3 N 0.00- 0.03 Immature Granulocyte % (Auto) June 18, 2014 2:05pm 0.2 % N 0.0-0.5 Icterus Index November 06, 2014 11:59pm < 2 0-7 Helicobacter pylori Rapid Urease Gastric Biopsy August 27, 2013 10:04am Name: PATRICIA TOUSSAINT Unit #: [id number] : 1995 Sex: F Loc / Svc: ED DOS: 08/13/14 Signed Report #: [id number] DIAGNOSTIC IMAGING REPORT TYPE OF EXAM: CT [...] seen. There is a preliminary report by [employer]. . Procedures No known history of procedures. Encounters Encounter Location Date/Time Departed Emergency Room [facility] 11/06/14 11:24pm Departed Emergency Room [facility] 08/16/14 9:04am Departed Emergency Room [facility] 08/13/14 12:02am Recent Diagnosis
--- OUTSIDE RECORDS SUMMARY | 2016-12-27 23:18 | XMS REPORT | Continuity of Care Document ---
Author Author [facility] Organization [facility] Address Unknown Phone Unavailable Support Name Relationship Address Phone LEANNA DURHAM MD Caregiver [facility] [address] [place] [address] Unavailable ALISHA NESS MD Caregiver [address] [place] [address] [place] [phone] KYLER TOUSSAINT Next Of Kin 2 [address] [id number] Insurance Providers Payer Name Policy Number Subscriber Name Relationship [facility] [id number] Kyler Toussaint 19 Child Advance Directives Directive Response Recorded Date/Time Advanced Directives Type None 01/10/15 11:22pm Problems Medical Problems Problem Onset Date Status Acute Pharyngitis, Soft tissue swelling of pharynx Unknown Active Dyspnea Unknown Active PHARYNGEAL PAIN Unknown Active Bilateral TMJ pain Unknown Active Flank pain, acute Unknown Active Flank pain, acute Unknown Active Facial contusion Unknown Active Facial contusion Unknown Active Left flank pain Unknown Active UTI (urinary tract infection) Unknown Active Left flank pain Unknown Active Flank pain Unknown Active Urethral spasm Unknown Active Medications Medication Dose Route Sig Days/Qty Instructions Order Date Discontinued Date Status Phenazopyridine HCl 1 Tab-Cap PO THREE TIMES A DAY 9 Qty 11/07/14 Active Oxycodone HCl/Acetaminophen 5 Mg PO Q4H PRN PAIN 20 Qty Take 1 tablet, by mouth, every 4 hours as needed for pain. 11/07/14 Active Prochlorperazine Maleate 10 Mg PO FOUR TIMES DAILY 30 Qty 01/11/15 Active Social History Social History Problem Response Recorded Date/Time Chewing Tobacco Status No 08/28/2013 7:19pm Hx Substance Use No 01/10/2015 11:30pm Hx Alcohol Use No 01/10/2015 11:30pm Has the pt used tobacco in the last 12 months No 08/26/2013 4:03pm Tobacco Usage none 06/18/2014 2:03pm Query Response Start Date Stop Date Smoking Status Never smoker Hospital Discharge Instructions No hospital discharge instructions. Plan of Care No plan of care. Functional Status Query Response Date Recorded Physical Hygiene Self January 10, 2015 11:30pm Disabilities None January 10, 2015 11:30pm Devices Used None January 10, 2015 11:30pm Dressing Self January 10, 2015 11:30pm Ambulation Self January 10, 2015 11:30pm Diet Self January 10, 2015 11:30pm Mental Status Alert January 11, 2015 1:59am Disabilities None January 10, 2015 11:30pm Devices Used None January 10, 2015 11:30pm Physical Hygiene Self January 10, 2015 11:30pm Dressing Self January 10, 2015 11:30pm Ambulation Self January 10, 2015 11:30pm Diet Self January 10, 2015 11:30pm Allergies, Adverse Reactions, Alerts Allergen Type Severity Reaction Status Last Updated nalbuphine HCl Allergy Unknown Active 01/11/15 Penicillin Allergy Unknown Active 01/11/15 Hydrocodone Allergy Severe hives/thick Active 01/11/15 Ampicillin Allergy Unknown Active 01/11/15 Sulfamethoxazole Allergy Unknown Active 01/11/15 Trimethoprim Allergy Unknown Active 01/11/15 Amoxicillin Allergy Unknown Active 01/11/15 Tramadol Allergy Unknown Active 01/11/15 Nalbuphine Allergy Unknown Active 01/11/15 Meloxicam Allergy Unknown Active 01/11/15 Latex Allergy Severe difficulty swallowing/breathing Active 01/11/15 Immunizations Name Given Type Hx Influenza Vaccination No Historical Hx Pneumococcal Vaccination No Historical Hx Tetanus, Diptheria, Pertussis < 5 YRS PER MOTHER Historical Hx Influenza Vaccination No Historical Hx Tetanus, Diptheria, Pertussis < 5 YRS PER MOTHER Historical Vital Signs Acute Vital Signs Vital Response Date/Time Temperature (Fahrenheit) 97.4 deg F (96.8 - 99.1) Temperature (Calculated Celsius) 36.35377 degrees C (36.0 - 37.3) Pulse Rate (adult) 95 bpm (60 - 100) Respiratory Rate 20 breaths/min (10 - 20) O2 Sat by Pulse Oximetry 98 % (90 - 100) Blood Pressure 115/58 mm Hg Height 5 ft 5 in Weight 129 lb Body Mass Index 21.0 kg/m^2 Results Test Source Date Result Interp. Ref. Range Comments Alanine Aminotransferase (ALT/SGPT) January 11, 2015 12:08am 52 U/L N 9- 52 Albumin January 11, 2015 12:08am 4.4 G/DL N 3.5-5.0 Albumin/Globulin Ratio January 11, 2015 12:08am 1.4 RATIO N 1.1-2.2 Alkaline Phosphatase January 11, 2015 12:08am 49 U/L N 38-126 Amylase Level June 18, 2014 2:05pm 77 U/L N 30-110 Anion Gap January 11, 2015 12:08am 13 MEQ/L N 5-15 Aspartate Amino Transf (AST/SGOT) January 11, 2015 12:08am 48 U/L H 14-36 BUN/Creatinine Ratio January 11, 2015 12:08am 14 RATIO N 6-26 Band Neutrophils # November 06, 2014 11:59pm 0.3 T/MM3 - Band Neutrophils % November 06, 2014 11:59pm 4.0 % N 0-6 Basophils # (Auto) January 11, 2015 12:08am 0.0 T/MM3 N 0-0.2 Basophils (%) (Auto) January 11, 2015 12:08am 0.7 % N 0-2 Blood Urea Nitrogen January 11, 2015 12:08am 10.0 MG/DL N 7-17 C-Reactive Protein August 02, 2013 11:45am < 5.0 MG/L 0-9 Calcium Level January 11, 2015 12:08am 9.1 MG/DL N 8.4-10.2 Calculated Osmolality January 11, 2015 12:08am 270 MOSM/KG N 261-280 Carbon Dioxide Level January 11, 2015 12:08am 25 MEQ/L N 22-30 Chemistry Specimen Hemolysis January 11, 2015 12:08am < 15 0-25 0-25: No Hemolysis.26-70: Slight [...] can falsely decrease Phenytoin. Recommend specimen recollection. Chloride Level January 11, 2015 12:08am 103 MEQ/L N 98-107 Creatinine January 11, 2015 12:08am 0.7 MG/DL N 0.7-1.2 Eosinophils # (Auto) January 11, 2015 12:08am 0.1 T/MM3 N 0-0.5 Eosinophils (%) (Auto) January 11, 2015 12:08am 1.8 % N 0-4 Erythrocyte Sedimentation Rate August 02, 2013 11:45am 3 MM/HR N 0-20 Globulin January 11, 2015 12:08am 3.1 G/DL N 2.4-3.6 Glomerular Filtration Rate Calc January 11, 2015 12:08am 108 - Glucose Level January 11, 2015 12:08am 94 MG/DL N 65-110 Hematocrit January 11, 2015 12:08am 33.6 % L 36-46 Hemoglobin January 11, 2015 12:08am 11.3 GM/DL L 12-16 Icterus Index January 11, 2015 12:08am < 2 0-7 Immature Granulocyte # (Auto) January 11, 2015 12:08am 0.00 T/MM3 N 0.00- 0.03 Immature Granulocyte % (Auto) January 11, 2015 12:08am 0.0 % N 0.0-0.5 Lipase January 11, 2015 12:08am 78 U/L N 23-300 Lymphocytes # (Auto) January 11, 2015 12:08am 3.1 T/MM3 N 1-4.8 Lymphocytes # (Manual) November 06, 2014 11:59pm 3.3 T/MM3 N 1-4.8 Lymphocytes % (Manual) November 06, 2014 11:59pm 41.0 % N 23-45 Lymphocytes (%) (Auto) January 11, 2015 12:08am 55.2 % H 23-45 Mean Corpuscular Hemoglobin January 11, 2015 12:08am 27.0 UUG N 26-34 Mean Corpuscular Hemoglobin Concent January 11, 2015 12:08am 33.6 GM/DL N 31-37 Mean Corpuscular Volume January 11, 2015 12:08am 80.4 UM3 N 80-100 Mean Platelet Volume January 11, 2015 12:08am 9.3 UM3 L 9.4-12.4 Monocytes # (Auto) January 11, 2015 12:08am 0.6 T/MM3 N 0-0.8 Monocytes (%) (Auto) January 11, 2015 12:08am 11.0 % H 0-9.0 Monoscreen July 28, 2013 9:35pm Negative - Neutrophils # (Auto) January 11, 2015 12:08am 1.7 T/MM3 L 1.8-7.7 Neutrophils # (Manual) November 06, 2014 11:59pm 4.4 T/MM3 N 1.8-7.7 Neutrophils % (Manual) November 06, 2014 11:59pm 55.0 % N 33-66 Neutrophils (%) (Auto) January 11, 2015 12:08am 31.3 % L 33-66 Platelet Count January 11, 2015 12:08am 247 T/MM3 N 130-400 Potassium Level January 11, 2015 12:08am 3.8 MEQ/L N 3.6-5 RDW Standard Deviation January 11, 2015 12:08am 47.2 FL N 36.9-50.2 Red Blood Count January 11, 2015 12:08am 4.18 M/MM3 N 4.00-5.20 Sodium Level January 11, 2015 12:08am 141 MEQ/L N 134-144 Total Bilirubin January 11, 2015 12:08am 0.40 MG/DL N 0.20-1.30 Total Protein January 11, 2015 12:08am 7.5 G/DL N 6.3-8.2 Turbidity January 11, 2015 12:08am < 20 0-20 Urinalysis Comment June 18, 2014 2:45pm Microscopic not ind. - Has specimen been collected/obtained? Y Urine Bacteria January 11, 2015 1:00am None seen - Has specimen been collected/obtained? Y Urine Bilirubin January 11, 2015 1:00am Negative - Has specimen been collected/obtained? Y Urine Blood January 11, 2015 1:00am Negative - Has specimen been collected/obtained? Y Urine Collection Type January 11, 2015 1:00am Cleancatch-midstream - Has specimen been collected/obtained? Y Urine Color January 11, 2015 1:00am Yellow - Has specimen been collected/obtained? Y Urine Glucose (UA) January 11, 2015 1:00am Negative - Has specimen been collected/obtained? Y Urine Ketones January 11, 2015 1:00am Negative - Has specimen been collected/obtained? Y Urine Leukocyte Esterase January 11, 2015 1:00am 1+ H - Has specimen been collected/obtained? Y Urine Nitrite January 11, 2015 1:00am Negative - Has specimen been collected/obtained? Y Urine Protein January 11, 2015 1:00am Negative - Has specimen been collected/obtained? Y Urine RBC January 11, 2015 1:00am 0-1 /HPF - Has specimen been collected/obtained? Y Urine Specific [place] January 11, 2015 1:00am 1.015 - Has specimen been collected/obtained? Y Urine Squamous Epithelial Cells January 11, 2015 1:00am 20-50 - Has specimen been collected/obtained? Y Urine Turbidity January 11, 2015 1:00am Clear - Has specimen been collected/obtained? Y Urine Urobilinogen January 11, 2015 1:00am 0.2 EU/DL - Has specimen been collected/obtained? Y Urine WBC January 11, 2015 1:00am 0-1 /HPF - Has specimen been collected/obtained? Y Urine pH January 11, 2015 1:00am 7.5 - Has specimen been collected/ obtained? Y White Blood Count January 11, 2015 12:08am 5.5 T/MM3 N 4.5-11.0 Helicobacter pylori Rapid Urease Gastric Biopsy August 27, 2013 10:04am Name: PATRICIA TOUSSAINT Unit #: [id number] : 1995 Sex: F Loc / Svc: ED DOS: 11/06/14 Signed Report #: [id number] DIAGNOSTIC IMAGING REPORT TYPE OF EXAM: CT RENAL W/O CONTRAST Dictated By: MARJAN LUEVANO MD INDICATION: ITS.REASON: LEFT FLANK AND ABDOMINAL PAIN, HX OF KIDNEY STONES CT RENAL W/O CONTRAST: Comparison: Renal CT dated June 18, 2014 Technique: Axial CT images were performed through the abdomen and pelvis without intravenous contrast. Findings: The lung bases are clear. The unenhanced liver is unremarkable. Gallbladder is surgically absent. The spleen, pancreas and adrenal glands are within normal limits. Kidneys appear normal. No evidence of stone disease or hydronephrosis. No definite ureteral stones. Ureters are difficult to follow given the lack of intra-abdominal fat. Uterus and ovaries are grossly normal. Bladder is unremarkable. No significant free pelvic fluid. No obvious bowel obstruction. No free air. Appendix is not seen and reportedly surgically absent. Impression: No acute disease process seen. There is a preliminary report by [facility]. . Procedures Procedure Status Date Provider(s) ROUTINE VENIPUNCTURE completed 11/06/14 CT ABD & PELVIS W/O CONTRAST completed 11/06/14 COMPREHEN METABOLIC PANEL completed 11/06/14 URINALYSIS AUTO W/SCOPE completed 11/06/14 URINE TEST completed 11/06/14 BL SMEAR W/DIFF WBC COUNT completed 11/06/14 COMPLETE CBC AUTOMATED completed 11/06/14 THER/PROPH/DIAG IV INF INIT completed 11/06/14 TX/PRO/DX INJ NEW DRUG ADDON completed 11/06/14 TX/PRO/DX INJ NEW DRUG ADDON completed 11/06/14 EMERGENCY DEPT VISIT completed 11/06/14 [id number]"INJECTION, HYDROMORPHONE, UP TO 4 MG" completed 11/06/14 529365"INJECTION, LEVOFLOXACIN, 250 MG" completed 11/06/14 349600"INJECTION, ONDANSETRON HYDROCHLORIDE, PER 1 MG" completed 11/06/14 [id number]% DEXTROSE/WATER (500 ML=1 UNIT) completed 11/06/14 Encounters Encounter Location Date/Time Registered Emergency Room [facility] 01/10/15 11:02pm Departed Emergency Room [facility] 11/06/14 11:24pm Recent Diagnosis
--- OUTSIDE RECORDS SUMMARY | 2016-12-27 23:19 | XMS REPORT | Continuity of Care Document ---
Author Author [facility] Organization [facility] Address Unknown Phone Unavailable Allergies Active [...] Suarez Code [place] [address] Office or other outpatient visit for the evaluation and management of a new patient, which requires DIOGO KOENIG MD 03/29/2016 82569 Urine test, by visual color comparison methods DIOGO KOENIG MD 05/27/2016 81061 Periodic comprehensive preventive medicine reevaluation and management of an individual including an DIOGO KOENIG MD 05/27/2016 j1050 medroxyprogesterone acetate 1mg DIOGO KOENIG MD 05/27/2016 89848 Office or other outpatient visit for the evaluation and management of an established patient, which АЛЕКСАНДР SUERO MD 06/04/2016 18246 Urine test, by visual color comparison methods DIOGO KOENIG MD 06/14/2016 69915 Office or other outpatient visit for the evaluation and management of an established patient, which АЛЕКСАНДР SUERO MD 06/14/2016 14257 Periodic comprehensive preventive medicine reevaluation and management of an individual including an DIOGO KOENIG MD 06/14/2016 j1050 medroxyprogesterone acetate 1mg DIOGO KOENIG MD 06/14/2016 16948 Administration of Injection DIOGO KOENIG MD W 09/13/2016 j1050 medroxyprogesterone acetate 1mg DIOGO KOENIG MD 09/13/2016 88497 Office or other outpatient visit for the evaluation and management of an established patient, which DIOGO KOEING MD 10/08/2016 76450 Office or other outpatient visit for the evaluation and management of an established patient, which DIOGO KOENIG MD 10/18/2016 16421 Urine test, by visual color comparison methods JOHN FELICIANO MD 11/22/2016 24638 Office or other outpatient visit for the evaluation and management of an established patient, which JOHN FELICIANO MD 11/22/2016 J1050 medroxyprogesterone acetate 1mg JOHN FELICIANO MD 11/22/2016 90701 Radiologic examination, wrist; complete, minimum of 3 views RYAN ELIAS MD 12/11/2016 75770 Office or other outpatient visit for the evaluation and management of an established patient, which RYAN ELIAS MD 12/11/2016 A4570 Splint RYAN ELIAS MD 12/11/2016 84384 Office or other outpatient visit for the [...] Status Pt. Type Provider Facility Loc./Unit Complaint [id number] 08/17/2013 15:51:00 08/17/2013 23 :59:59 CLS Outpatient
--- OUTSIDE RECORDS SUMMARY | 2016-12-27 23:20 | XMS REPORT | Continuity of Care Document ---
Author Author [facility] Organization [facility] Address Unknown Phone Unavailable Support Name Relationship Address Phone ALISHA NESS MD Caregiver [address] [place] [phone] PRASHANTH KOENIG MD Caregiver [address] [place] [place] [phone] MICHAEL TOLENTINO MD Caregiver [address] [place] [address] [place] [phone] KYLER TOUSSAINT Next Of Kin [address] [place] [address] Insurance Providers Payer Name Policy Number Subscriber Name Relationship [facility] [id number] Kyler Toussaint 19 Child Problems Medical Problems Problem Onset Date Status Acute Pharyngitis, Soft tissue swelling of pharynx Unknown Active Dyspnea Unknown Active PHARYNGEAL PAIN Unknown Active Bilateral TMJ pain Unknown Active Flank pain, acute Unknown Active Flank pain, acute Unknown Active Facial contusion Unknown Active Medications Medication Dose Route Sig Days/Qty Instructions Order Date Discontinued Date Status Hydrocodone/Acetaminophen 1-2 Tab PO Every 6 Hours 08/13/14 Active Social History Social History Problem Response Recorded Date/Time Smoking Status Never smoker 08/13/2014 12:25am Chewing Tobacco Status No 08/28/2013 7:19pm Hx Substance Use No 08/13/2014 12:25am Hx Alcohol Use No 08/13/2014 12:25am Has the pt used tobacco in the last 12 months No 08/26/2013 4:03pm Query Response Start Date Stop Date Smoking Status Never smoker Hospital Discharge Instructions No hospital discharge instructions. Plan of Care No plan of care. Functional Status Query Response Date Recorded Physical Hygiene Self August 13, 2014 12:25am Disabilities None August 13, 2014 12:25am Devices Used None August 13, 2014 12:25am Dressing Self August 13, 2014 12:25am Ambulation Self August 13, 2014 12:25am Diet Self August 13, 2014 12:25am Mental Status Alert Oriented August 13, 2014 12:25am Disabilities None August 13, 2014 12:25am Devices Used None August 13, 2014 12:25am Physical Hygiene Self August 13, 2014 12:25am Dressing Self August 13, 2014 12:25am Ambulation Self August 13, 2014 12:25am Diet Self August 13, 2014 12:25am Allergies, Adverse Reactions, Alerts Allergen Type Severity Reaction Status Last Updated nalbuphine HCl Allergy Unknown Active 08/13/14 Penicillin Allergy Unknown Active 08/13/14 Ampicillin Allergy Unknown Active 08/13/14 Sulfamethoxazole Allergy Unknown Active 08/13/14 Trimethoprim Allergy Unknown Active 08/13/14 Amoxicillin Allergy Unknown Active 08/13/14 Tramadol Allergy Unknown Active 08/13/14 Meloxicam Allergy Unknown Active 08/13/14 Latex Allergy Unknown Active 08/13/14 Immunizations Name Given Type Hx Influenza Vaccination No Historical Hx Pneumococcal Vaccination No Historical Hx Tetanus, Diptheria, Pertussis < 5 YRS PER MOTHER Historical Hx Influenza Vaccination No Historical Hx Tetanus, Diptheria, Pertussis < 5 YRS PER MOTHER Historical Vital Signs Acute Vital Signs Vital Response Date/Time Temperature (Fahrenheit) 97.7 deg F (96.8 - 99.1) Temperature (Calculated Celsius) 36.26739 degrees C (36.0 - 37.3) Pulse Rate (adult) 66 bpm (60 - 100) Respiratory Rate 16 breaths/min (10 - 20) O2 Sat by Pulse Oximetry 100 % (90 - 100) Blood Pressure 130/88 mm Hg Height 5 ft 5 in [...] Has specimen been collected/obtained? Y Urine Specific [place] June 18, 2014 2:45pm 1.020 - Has [...] 2013 10:04am Name: PATRICIA TOUSSAINT Unit #: [id number] : 1995 Sex: F Loc / [facility]: [facility] DOS: 06/28/14 Signed Report #: [id number] DIAGNOSTIC IMAGING REPORT TYPE OF EXAM: CT HEAD W/O CONTRAST Dictated By: MARJAN LUEVANO MD INDICATION: ITS.REASON: 850.0 CONCUSSION W/O LOSS CONSCIOUSNESS CT HEAD W/O CONTRAST: Comparison: None Technique: Axial CT images through the head were performed without contrast. FINDINGS: The ventricles are of normal size, shape, and contour for the patient 's age. Small 3-mm fluid attenuation focus in the right posterior frontal lobe adjacent to the posterior limb of the internal capsule probably represents a prominent perivascular space. The brainstem, cerebellum, and cerebral hemispheres otherwise have a normal morphology and CT attenuation. There is no evidence of midline displacement. No hemorrhage, signs of acute territorial stroke, mass effect, mass lesions, or edema is evident. The visualized portions of the skull base, midface, and calvarium demonstrate no abnormality. The paranasal sinuses are well aerated and free of significant disease. The tympanic and mastoid cavities appear normal. IMPRESSION: No acute intracranial abnormality or hemorrhage. . Procedures Procedure Status Date Provider(s) THER/PROPH/DIAG INJ IV PUSH completed 06/18/14 TX/PRO/DX INJ SAME DRUG BRAZER RESISTANCE completed 06/18/14 HYDRATE IV INFUSION ADD-ON completed 06/18/14 Encounters Encounter Location Date/Time Registered Emergency Room [facility] 08/13/14 12:02am Registered Clinic [facility] 06/28/14 1:59pm Departed Emergency Room [facility] 06/18/14 1:08pm Recent Diagnosis
[2016-12-27] MEDS ORDERED: PREG50CA PO (23:39)
[2016-12-27] MEDS ORDERED: QUET25TA PO (23:39)
--- NOTE | 2016-12-28 00:07 | ERPDOC ---
Departure Disposition Decision Date: Dec 28, 2016 Disposition Decision Time: 02:58 Disposition: 01 DISCHARGED HOME, SELF-CARE Impression Impression Impression: Primary Impression: Left flank pain Severity: Moderate Condition: Improved Seen By: Physician only Referrals: DIOGO KOENIG MD (Family) Patient Instructions: Flank Pain (ED) Problems/Meds/Labs Reviewed?: Yes Medications reviewed and manag: Yes Additional Instructions: Establish yourself with a primary care physician for further evaluation, or you may follow-up with your urologist. Follow up care ordered?: Yes Mental Status: Alert HPI - Abdominal Pain General Chief Complaint: Flank Pain Stated Complaint: SIDE AND BACK PAIN Time Seen by Provider: 00:06 Source: patient History/Exam Limitations: no limitations HPI - Abdominal Pain Initial Comments Patient is a 21-year-old female presents emergency room for evaluation of left lower quadrant left flank pain 10 days. Patient states she's had this pain almost constantly now for 10 days, was seen "urgent care", diagnosed with a urinary tract infection due to hematuria with back strain and was given Flexeril and Macrobid his antibiotic. Patient was called with culture results told to stop the Macrobid and start azithromycin. Patient states she developed hives on the azithromycin so was told to stop taking it" try to tough it out". Patient states the pain she is having today is very different from her kidney stone pain and pain that she was here for 2 months ago. Patient reports subjective fever, nausea vomiting Pain Scale: Now & Worst: 8/10 Location: LLQ, left flank Allergies: Coded Allergies: hydrocodone (Verified Allergy, Severe, hives/thick, 12/27/16) latex (Verified Allergy, Severe, difficulty swallowing/breathing, 12/27/16) Penicillins (Verified Allergy, Unknown, 12/27/16) amoxicillin (Verified Allergy, Unknown, 12/27/16) ampicillin (Verified Allergy, Unknown, 12/27/16) diclofenac (Verified Allergy, Unknown, HIVES, 12/27/16) fentanyl (Verified Allergy, Unknown, 12/27/16) meloxicam (Verified Allergy, Unknown, 12/27/16) nalbuphine (Verified Allergy, Unknown, 12/27/16) nalbuphine HCl (Verified Allergy, Unknown, 12/27/16) sulfamethoxazole (Verified Allergy, Unknown, 12/27/16) tramadol (Verified Allergy, Unknown, 12/27/16) trimethoprim (Verified Allergy, Unknown, 12/27/16) ketorolac (Verified Adverse Reaction, Unknown, DIZZY VOMITING, 12/27/16) Past History Past Medical History ENMT: TMJ, other Female: UTI, kidney stones, other, pyelonephritis Surgical History General: appendix, gallbladder, other, tonsils Vaccines Hx Influenza Vaccination: No Hx Pneumococcal Vaccination: No Social History Smoking Status: Current every day smoker Substance Use Type: does not use Marital Status: Single Housing: house Current Occupational Status: student Review of Systems Constitutional Constitutional: DENIES: appetite decrease, chills, dizziness, fever, weakness Eyes Vision: DENIES: loss of visual yang ENMT Sinuses: DENIES: congestion, rhinorrhea Cardiovascular Cardiac: DENIES: chest pain, dyspnea on exertion Pulmonary Respiratory: DENIES: cough, dyspnea, sputum, tachypnea GI Upper Abdomen: nausea, vomiting, DENIES: pain Lower Abdomen: pain, DENIES: constipation, diarrhea General: burning, urgency, DENIES: frequency Musculoskeletal General: DENIES: cramps, pain, weakness Integumentary Skin: DENIES: color change, itching, rash Endocrine Endocrine: DENIES: heat/cold intolerance Hematologic/Lymphatic Hematologic/Lymphatic: DENIES: anemia Physical Exam General General Nourishment: well nourished, well developed General Body Habitus: well groomed Vitals and Pain Weight: Kilograms: 63.200 Height (feet): 5 Height (inches): 6.00 Triage Pain Scale: RN VS reviewed by Provider: Yes Eyes (brief) Eyes Brief: found: EOMI ENMT (brief) ENMT Brief: FOUND: mucosa moist, normal dentition, NOT FOUND: nasal erythema, pharnyx erythema, tonsillar deviation Neck (brief) Neck: NOT FOUND: adenopathy, spasm, tenderness Respiratory (brief) Respiratory: FOUND: clear all yang, equal bilaterally, NOT FOUND: rales, wheezes Cardiovascular (brief) Cardiac: FOUND: regular rate, regular rhythm Capillary Refill: <2 sec Abdomen (brief) Abdominal Brief: FOUND: bowel normo active x4, soft, tender (left lower quadrant tenderness) Lymphatic (brief) Lymphatic Brief: NOT FOUND: adenopathy Musculoskeletal (brief) Musculoskeletal Brief: NOT FOUND: spasm, tenderness Integumentary (brief) Integumentary Brief: FOUND: dry, pink, warm, NOT FOUND: rash Neurologic (brief) Neurological Brief: FOUND: CN w/o gross def to obs, motor-no gross deficits, sensory-no gross deficits Psychiatric (brief) Psychiatric Brief: FOUND: alert, oriented Differential Diagnoses Considering: Appendicitis, Aortic Dissection, Biliary Colic, Bowel Obstruction , Cholecystitis, Constipation, Ectopic , Gastroenteritis, Ileus, Neoplasm, Ovarian Cyst, Ovarian Torsion, Pancreatitis, Pneumonia, Pyelonephritis , Renal Colic, Ulcer, Ulcerative Colitis, UTI, Volvulus Progress Results/Orders Orders Lab Results Medications Current ED Medications Sodium Chloride (Normal Saline IV) 1,000 ml @ 999 mls/hr Q1H1M ONCE IV Last administered on 12/28/16 01:00; Start 12/28/16 at 00:45; Stop 12/28/16 at 01:45; Status DC Ondansetron HCl (Zofran) 4 mg O ONCE IV Last administered on 12/28/16 01:03; Start 12/28/16 at 00:45; Stop 12/28/16 at 00:46; Status DC Hydromorphone HCl (Dilaudid) 0.5 mg O ONCE IV Last administered on 12/28/16 01 :05; Start 12/28/16 at 00:45; Stop 12/28/16 at 00:46; Status DC Prochlorperazine Edisylate (Compazine) 10 mg O ONCE IV Last administered on 01:33; Start 12/28/16 at 01:30; Stop 12/28/16 at 01:31; Status DC Progress Progress Patient's laboratories and CT scan are noncontributory we'll discharge patient home patient needs to follow-up with her urologist or establish with a primary medical physician CT CT : CT: Renal no contrast Interpretation: Normal, Faxed Report EUGENIO CHAPMAN MD Dec 28, 2016 00:06 Potassium Level 3.9MEQ/L Chloride Level 106MEQ/L Carbon Dioxide Level 24MEQ/L Anion Gap 11MEQ/L Blood Urea Nitrogen 16.0MG/DL Creatinine 0.8MG/DL Glomerular Filtration Rate Calc 91 BUN/Creatinine Ratio 20RATIO Glucose Level 100MG/DL Calculated Osmolality 272MOSM/KG Calcium Level 9.7MG/DL Total Bilirubin 0.80MG/DL Icterus Index < 2 Aspartate Amino Transf (AST/SGOT) 19U/L Alanine Aminotransferase (ALT/SGPT) 24U/L Alkaline Phosphatase 52U/L Total Protein 7.5G/DL Albumin 4.7G/DL Globulin 2.8G/DL Albumin/Globulin Ratio 1.7RATIO Lipase 47U/L Chemistry Specimen Hemolysis < 15 Urine Collection Type Voided-not cc-midstr Urine Color Yellow Urine Turbidity Sl cloudy Urine pH 6.5 Urine Specific [place] 1.020 Urine Protein Negative Urine Glucose (UA) Negative Urine Ketones Negative Urine Blood Trace-intact Urine Nitrite Negative Urine Bilirubin Negative Urine Urobilinogen 0.2EU/DL Urine Leukocyte Esterase Negative Urinalysis Comment Microscopic not ind. Urine Test Negative Medications Current ED Medications Sodium Chloride (Normal Saline IV) 1,000 ml @ 999 mls/hr Q1H1M ONCE IV Last administered on 12/28/16 01:00; Start 12/28/16 at 00:45; Stop 12/28/16 at 01:45; Status DC Ondansetron HCl (Zofran) 4 mg O ONCE IV Last administered on 12/28/16 01:03; Start 12/28/16 at 00:45; Stop 12/28/16 at 00:46; Status DC Hydromorphone HCl (Dilaudid) 0.5 mg O ONCE IV Last administered on 12/28/16 01 :05; Start 12/28/16 at 00:45; Stop 12/28/16 at 00:46; Status DC Prochlorperazine Edisylate (Compazine) 10 mg O ONCE IV Last administered on 01:33; Start 12/28/16 at 01:30; Stop 12/28/16 at 01:31; Status DC EUGENIO CHAPMAN MD Dec 28, 2016 00:06
--- OUTSIDE RECORDS SUMMARY | 2016-12-28 00:19 | XMS REPORT | Continuity of Care Document ---
Author Author [facility] Organization [facility] Address Unknown Phone Unavailable Allergies [...] of other contraceptives DIOGO KOENIG MD 10/08/2016 IDOGO KOENIG MD r31.29 Other microscopic hematuria DIOGO [...] Suarez [place] [address] Office or other outpatient visit for the evaluation and management of a new patient, which requires DIOGO KOENIG MD 03/29/2016 09367 Urine test, by visual color comparison methods DIOGO KOENIG MD 05/27/2016 68925 Periodic comprehensive preventive medicine reevaluation and management of an individual including an DIOGO KOENIG MD 05/27/2016 j1050 medroxyprogesterone acetate 1mg DIOGO KOENIG MD 05/27/2016 23206 Office or other outpatient visit for the evaluation and management of an established patient, which АЛЕКСАНДР SUERO MD 06/04/2016 81898 Urine test, by visual color comparison methods DIOGO KOENIG MD 06/14/2016 78651 Office or other outpatient visit for the evaluation and management of an established patient, which АЛЕКСАНДР SUERO MD 06/14/2016 92548 Periodic comprehensive preventive medicine reevaluation and management of an individual including an DIOGO KOENIG MD 06/14/2016 j1050 medroxyprogesterone acetate 1mg DIOGO KOENIG MD 06/14/2016 09504 Administration of Injection DIOGO KOENIG MD W 09/13/2016 j1050 medroxyprogesterone acetate 1mg DIOGO KOENIG MD 09/13/2016 73687 Office or other outpatient visit for the evaluation and management of an established patient, which DIOGO KOENIG MD 10/08/2016 84538 Office or other outpatient visit for the evaluation and management of an established patient, which DIOGO KOENIG MD 10/18/2016 65657 Urine test, by visual color comparison methods JOHN FELICIANO MD 11/22/2016 80923 Office or other outpatient visit for the evaluation and management of an established patient, which JOHN FELICIANO MD 11/22/2016 J1050 medroxyprogesterone acetate 1mg JOHN FELICIANO MD 11/22/2016 80816 Radiologic examination, wrist; complete, minimum of 3 views RYAN ELIAS MD 12/11/2016 38066 Office or other outpatient visit for the evaluation and management of an established patient, which RYAN ELIAS MD 12/11/2016 A4570 Splint RYAN ELIAS MD 12/11/2016 04367 Office or other outpatient visit for the [...] Status Pt. Type Provider Facility Loc./Unit Complaint [id number] 08/17/2013 15:51:00 08/17/2013 23 :59:59 CLS Outpatient
--- OUTSIDE RECORDS SUMMARY | 2016-12-28 00:20 | XMS REPORT | Continuity of Care Document ---
Author Author [facility] Organization [facility] Address Unknown Phone Unavailable Support Name Relationship Address Phone ALISHA NESS MD Caregiver [address] [place], [place] [phone] EUGENIO CHAPMAN MD Caregiver [address] [place] [phone] KYLRE TOUSSAINT Next Of Kin [address] [place] [id number] Insurance Providers Payer Name Policy Number Subscriber Name Relationship [facility] [id number] Kyler Toussaint 19 Child Problems Medical Problems [...] F (96.8 - 99.1) Temperature (Calculated Celsius) 36.56394 degrees C (36.0 - 37.3) Pulse Rate [...] Has specimen been collected/obtained? Y Urine Specific [place] June 18, 2014 2:45pm 1.020 - Has [...] 2013 10:04am Name: PATRICIA TOUSSAINT Unit #: [id number] : 1995 Sex: F Loc / Svc: ED DOS: 08/13/14 Signed Report #: [id number] DIAGNOSTIC IMAGING REPORT TYPE OF EXAM: CT [...] PUSH completed 06/18/14 TX/PRO/DX INJ SAME DRUG DETAIL MAKER AND FITTER completed 06/18/14 HYDRATE IV INFUSION ADD-ON completed 06/18/14 Encounters Encounter Location Date/Time Departed Emergency Room [facility] 08/16/14 9:04am Departed Emergency Room [facility] 08/13/14 12:02am Registered [facility] 06/28/14 1:59pm Departed Emergency Room [facility] 06/18/14 1:08pm Recent Diagnosis
--- OUTSIDE RECORDS SUMMARY | 2016-12-28 00:20 | XMS REPORT | Continuity of Care Document ---
Author Author [facility] Organization [facility] Address Unknown Phone Unavailable Support Name Relationship Address Phone ALISHA NESS MD Caregiver [address] [place], [place] [phone] MICHAEL TOLENTINO MD Caregiver [address] [place] [phone] KYLER TOUSSAINT Next Of Kin [address] [place] [id number] Insurance Providers Payer Name Policy Number Subscriber Name Relationship [facility] [id number] Kyler Toussaint 19 Child Advance Directives Directive [...] F (96.8 - 99.1) Temperature (Calculated Celsius) 36.93021 degrees C (36.0 - 37.3) Pulse Rate [...] Has specimen been collected/obtained? Y Urine Specific [place] November 06, 2014 11:53pm 1.015 - Has [...] 2013 10:04am Name: PATRICIA TOUSSAINT Unit #: [id number] : 1995 Sex: F Loc / Svc: ED DOS: 08/13/14 Signed Report #: [id number] DIAGNOSTIC IMAGING REPORT TYPE OF EXAM: CT [...] seen. There is a preliminary report by tolingo. . Procedures No known history of procedures. Encounters Encounter Location Date/Time Departed Emergency Room [facility] 11/06/14 11:24pm Departed Emergency Room [facility] 08/16/14 9:04am Departed Emergency Room [facility] 08/13/14 12:02am Recent Diagnosis
--- OUTSIDE RECORDS SUMMARY | 2016-12-28 00:20 | XMS REPORT | Continuity of Care Document ---
Author Author [facility] Organization [facility] Address Unknown Phone Unavailable Support Name Relationship Address Phone ZAHEER VARGHESE MD Caregiver [address] [place] [address] PRASHANTH KOENIG MD Caregiver [address] [place] [phone] KYLER TOUSSAINT Next Of Kin [id number] [place] [address] FA C Insurance Providers Payer Name Policy Number Subscriber Name Relationship [facility] [id number] Kyler Toussaint 19 Child Problems Medical Problems [...] F (96.8 - 99.1) Temperature (Calculated Celsius) 36.14302 degrees C (36.0 - 37.3) Pulse Rate [...] Has specimen been collected/obtained? Y Urine Specific [place] June 18, 2014 2:45pm 1.020 - Has [...] Encounters Encounter Location Date/Time Departed Emergency Room [facility] 06/18/14 1:08pm Recent Diagnosis
--- OUTSIDE RECORDS SUMMARY | 2016-12-28 00:21 | XMS REPORT | Continuity of Care Document ---
Author Author [facility] Organization [facility] Address Unknown Phone Unavailable Support Name Relationship Address Phone LEANNA DURHAM MD Caregiver [facility] [address] [place] [address] Unavailable ALISHA NESS MD Caregiver [address] [place] [address] [place] [phone] KYLER TOUSSAINT Next Of Kin [address] [place] [id number] Insurance Providers Payer Name Policy Number Subscriber Name Relationship [facility] [id number] Kyler Toussaint 19 Child Advance Directives Directive [...] F (96.8 - 99.1) Temperature (Calculated Celsius) 36.51579 degrees C (36.0 - 37.3) Pulse Rate [...] Has specimen been collected/obtained? Y Urine Specific [place] January 11, 2015 1:00am 1.015 - Has [...] 2013 10:04am Name: PATRICIA TOUSSAINT Unit #: [id number] : 1995 Sex: F Loc / Svc: ED DOS: 11/06/14 Signed Report #: [id number] DIAGNOSTIC IMAGING REPORT TYPE OF EXAM: CT [...] completed 11/06/14 EMERGENCY DEPT VISIT completed 11/06/14 838923"INJECTION, HYDROMORPHONE, UP TO 4 MG" completed 11/06/14 723348"INJECTION, LEVOFLOXACIN, 250 MG" completed 11/06/14 507879"INJECTION, ONDANSETRON HYDROCHLORIDE, PER 1 MG" completed 11/06/14 7415528% DEXTROSE/WATER (500 ML=1 UNIT) completed 11/06/14 Encounters Encounter Location Date/Time Registered Emergency Room [facility] 01/10/15 11:02pm Departed Emergency Room [facility] 11/06/14 11:24pm Recent Diagnosis
--- OUTSIDE RECORDS SUMMARY | 2016-12-28 00:23 | XMS REPORT | Continuity of Care Document ---
Author Author [facility] Organization [facility] Address Unknown Phone Unavailable Allergies Active [...] Suarez [place] [address] Office or other outpatient visit for the evaluation and management of a new patient, which requires DIOGO KOENIG MD 03/29/2016 66929 Urine test, by visual color comparison methods DIOGO KOENIG MD 05/27/2016 87249 Periodic comprehensive preventive medicine reevaluation and management of an individual including an DIOGO KOENIG MD 05/27/2016 j1050 medroxyprogesterone acetate 1mg DIOGO KOENIG MD 05/27/2016 91997 Office or other outpatient visit for the evaluation and management of an established patient, which АЛЕКСАНДР SUERO MD 06/04/2016 06171 Urine test, by visual color comparison methods DIOGO KOENIG MD 06/14/2016 58552 Office or other outpatient visit for the evaluation and management of an established patient, which АЛЕКСАНДР SUERO MD 06/14/2016 85361 Periodic comprehensive preventive medicine reevaluation and management of an individual including an DIOGO KOENIG MD 06/14/2016 j1050 medroxyprogesterone acetate 1mg DIOGO KOENIG MD 06/14/2016 52066 Administration of Injection DIOGO KOENIG MD W 09/13/2016 j1050 medroxyprogesterone acetate 1mg DIOGO KOENIG MD 09/13/2016 54379 Office or other outpatient visit for the evaluation and management of an established patient, which DIOGO KOENIG MD 10/08/2016 77987 Office or other outpatient visit for the evaluation and management of an established patient, which DIOGO KOENIG MD 10/18/2016 49043 Urine test, by visual color comparison methods JOHN FELICIANO MD 11/22/2016 52809 Office or other outpatient visit for the evaluation and management of an established patient, which JOHN FELICIANO MD 11/22/2016 J1050 medroxyprogesterone acetate 1mg JOHN FELICIANO MD 11/22/2016 41089 Radiologic examination, wrist; complete, minimum of 3 views RYAN ELIAS MD 12/11/2016 55679 Office or other outpatient visit for the evaluation and management of an established patient, which RYAN ELIAS MD 12/11/2016 A4570 Splint RYAN ELIAS MD 12/11/2016 74176 Office or other outpatient visit for the [...] Status Pt. Type Provider Facility Loc./Unit Complaint [id number] 08/17/2013 15:51:00 08/17/2013 23 :59:59 CLS Outpatient
--- OUTSIDE RECORDS SUMMARY | 2016-12-28 00:23 | XMS REPORT | Continuity of Care Document ---
Author Author [facility] Organization [facility] Address Unknown Phone Unavailable Support Name Relationship Address Phone ALISHA NESS MD Caregiver [address] [place] [phone] PRASHANTH KOENIG MD Caregiver [address] [place] [phone] MICHAEL TOLENTINO MD Caregiver [address] [place] [address] [place] [phone] KYLER TOUSSAINT Next Of Kin [address] [place] [address] Insurance Providers Payer Name Policy Number Subscriber Name Relationship [facility] [id number] Kyler Toussaint 19 Child Problems Medical Problems [...] F (96.8 - 99.1) Temperature (Calculated Celsius) 36.36800 degrees C (36.0 - 37.3) Pulse Rate [...] Has specimen been collected/obtained? Y Urine Specific [place] June 18, 2014 2:45pm 1.020 - Has [...] 2013 10:04am Name: PATRICIA TOUSSAINT Unit #: [id number] : 1995 Sex: F Loc / [facility] [place]: [facility] DOS: 06/28/14 Signed Report #: [id number] DIAGNOSTIC IMAGING REPORT TYPE OF EXAM: CT [...] PUSH completed 06/18/14 TX/PRO/DX INJ SAME DRUG RN FORENSIC completed 06/18/14 HYDRATE IV INFUSION ADD-ON completed 06/18/14 Encounters Encounter Location Date/Time Registered Emergency Room [facility] 08/13/14 12:02am Registered Clinic [facility] 06/28/14 1:59pm Departed Emergency Room [facility] 06/18/14 1:08pm Recent Diagnosis
[2016-12-28] MEDS ORDERED: NORMAL SALINE 1,000 ML IV ONE (00:45)
[2016-12-28] MEDS ORDERED: HYDROMORPHONE 2mg/ml INJECTION IV ONE (00:45)
[2016-12-28] MEDS ORDERED: ONDANSETRON 4mg/2ml INJECTION IV ONE (00:45)
[2016-12-28 00:53] LABS: BLOOD, URINE TRACE-INTACT (NEGATIVE); COLOR,URINE YELLOW (YELLOW); LEUKOCYTE ESTERASE ,URINE NEGATIVE (NEGATIVE); NITRITE,URINE NEGATIVE (NEGATIVE); UROBILINOGEN,URINE 0.2 EU/DL (NORMAL)
[2016-12-28 00:55] LABS: BASOPHILS % (AUTO) 0.4 % (0-2); EOSINOPHILS # (AUTO) 0.1 T/MM3 (0-0.5); EOSINOPHILS % (AUTO) 1.2 % (0-4); HCT - HEMATOCRIT 36.9 % (36-46); HGB - HEMOGLOBIN 12.8 GM/DL (12-16); LYMPHOCYTES # (AUTO) 2.4 T/MM3 (1-4.8); LYMPHOCYTES % (AUTO) 35.2 % (23-45); MEAN CORPUSCULAR HGB 30.8 UUG (26-34); MEAN CORPUSCULAR HGB CONC(MCHC 34.7 GM/DL (31-37); MEAN CORPUSCULAR VOLUME 88.7 UM3 (80-100); MEAN PLATELET VOLUME 9.3 UM3 (9.4-12.4); MONOCYTES # (AUTO) 0.6 T/MM3 (0-0.8); MONOCYTES % (AUTO) 8.1 % (0-9.0); NEUTROPHILS #(AUTO)-ABSOLUTE 3.8 T/MM3 (1.8-7.7); NEUTROPHILS % (AUTO) 55.1 % (33-66); RED BLOOD COUNT 4.16 M/MM3 (4.00-5.20); WBC - WHITE BLOOD COUNT 6.9 T/MM3 (4.5-11.0)
[2016-12-28 01:02] LABS: ALBUMIN 4.7 G/DL (3.5-5.0); ALBUMIN/GLOBULIN RATIO 1.7 RATIO (1.1-2.2); ALKALINE PHOSPHATASE 52 U/L (38-126); ALT (SGPT) 24 U/L (9-52); ANION GAP 11 MEQ/L (5-15); AST (SGOT) 19 U/L (14-36); BUN/CREATININE RATIO 20 RATIO (6-26); CALCIUM 9.7 MG/DL (8.4-10.2); CHLORIDE 106 MEQ/L (98-107); CO2 - CARBON DIOXIDE 24 MEQ/L (22-30); CREATININE 0.8 MG/DL (0.7-1.2); GLOMERULAR FILTRATION RATE 91; GLUCOSE 100 MG/DL (65-110); POTASSIUM 3.9 MEQ/L (3.6-5); SODIUM 141 MEQ/L (134-144); TOTAL PROTEIN 7.5 G/DL (6.3-8.2)
[2016-12-28 01:22] LABS: LIPASE 47 U/L (23-300)
[2016-12-28] MEDS ORDERED: PROCHLORPERAZINE 10mg/2ml INJECTION IV ONE (01:30)
[2016-12-28 03:26] VITALS: BP 121/71; PULSE 89; RESP 15; O2SAT 98
--- NOTE | 2016-12-28 03:26 | NUR ---
DEPARTURE PT COLLECTED BELONGINGS AND AMBULATED INDEPENDENTLY TO EXIT WITH SIGNIFICANT OTHER, GAIT STEADY.
--- NOTE | 2016-12-29 09:40 | DI ---
Indication: ITS.REASON: left flank pain history of stones, labs normal PROCEDURE: CT RENAL W/O CONTRAST: Encounter: Initial Comparison: Renal CT dated November 07, 2014 Technique: Axial CT images were performed through the abdomen and pelvis without intravenous contrast. Coronal and sagittal two-dimensional reformats. Automated Exposure Control and Iterative Reconstruction dose reducing techniques were utilized. Findings: The lung bases are clear. The unenhanced contours of the liver, spleen, pancreas and adrenal glands are within normal limits. Gallbladder is surgically absent. Kidneys appear normal. No renal or ureteral stone disease identified. Ureters are difficult to follow given the lack of intra-abdominal fat. Bladder is grossly normal. Uterus and ovaries are grossly normal. Trace free pelvic fluid may be physiologic. No evidence of a bowel obstruction. Prior appendectomy. Bone windows show no acute findings. Impression: No acute disease process seen. There is a preliminary report by [facility]. .
== END 2016-12-28 03:26 | disposition home or self-care (01) ==
LOC: ED 23:01
DX: R10.32 Left lower quadrant pain (principal); M54.5 Low back pain; R11.2 Nausea with vomiting, unspecified; R50.9 Fever, unspecified; R30.0 Dysuria; R39.15 Urgency of urination
CPT/HCPCS: 74176; 80053; 81003; 81025; 83690; 85025; 96361; 96374; 96375; 99284; J0780; J1170; J2405; J7030